=== PATIENT | male | born 1975 | race Caucasian/White ===

== ENCOUNTER → 2018-09-30 09:37 | Outpatient (CLI) | payer BC, SELFPAY ==
--- NOTE | 2018-09-30 09:45 | STEWCON_ITS ---
Version 2 Reason For Study: Abnormal EKG Stress Results Protocol: Duy Protocol Maximum Predicted HR: 179 bpm Target HR: 152 bpm % Maximum Predicted HR: 94 % Heart Stage Duration Rate BP Comment (mm:ss) (bpm) Baseline 61 126/82No Chest Pain; Diluted Definity 3 ML Given Duy Protocol Stage I 3:00 120 138/78No Chest Pain Duy Protocol Stage II 3:00 131 154/78No Chest Pain Duy Protocol Stage III 3:00 155 160/64No Chest Pain; Mild Dyspnea No Chest Pain; Mild to Moderate Dyspnea; Drew Leg Duy Protocol Stage IV 0:30 169 / Pain Recovery 88 118/68No Chest Pain Stress Duration: 9:30 mm:ss Maximum Stress HR: 169 bpm METS: 11 Baseline Echocardiogram Findings The estimated ejection fraction is 60 %. Stress Echo Wall motion Data Resting WM Intermediate WM Stress WM Resting Wall Motion Wall Motion Stress No regional wall motion No regional wall motion abnormalities noted. abnormalities noted. All segments Normal. EKG Data The baseline ECG displays normal sinus rhythm. During stress, there were no ST or T wave changes noted to suggest ischemia. The patient exercised according to the regular Duy protocol for a total duration of 9:30. The maximum heart rate attained was 181 beats per minute. This was 101% of maximum predicted heart rate. The peak blood pressure was 160/94. Symptoms with Stress The patient experinced No CP. Pt. had leg discomfort . Interpretation Summary The estimated ejection fraction is 60 %. No regional wall motion abnormalities noted. All segments Normal. No regional wall motion abnormalities noted. During stress, there were no ST or T wave changes noted to suggest ischemia. The baseline ECG displays normal sinus rhythm. The test is negative exercise induced CP or EKG or Echocardiographic changes of ischemia. Definity contrast was used for bettter visualization of wall motion. Ordering Physician: JUAN MANUEL Lau Referring Physician: Brad Singer MD Performed By: Jonn Stovall, RUST
== END ==
PROVIDERS: Family Provider Family Medicine; PCP Family Medicine; Referring Provider Nurse Practitioner Primary Care; Visit Provider Nurse Practitioner Primary Care
DX: I45.4 Nonspecific intraventricular block (principal); R42 Dizziness and giddiness; R94.31 Abnormal electrocardiogram [ECG] [EKG]
CPT/HCPCS: 93017; 93350; Q9957; A4216; C8928

== ENCOUNTER → 2022-09-11 | Outpatient (CLI) | payer BC, SELFPAY ==
[2022-09-11 13:26] LABS: Erythrocyte Sedimentation Rate 3 mm/hr (0-20)
[2022-09-11 13:28] LABS: Absolute Lymphocyte Count 1.58 X10^3/uL (0.83-4.51); Absolute Neutrophil Count 4.3 X10^3/uL (2.0-7.7); Basophil# 0.04 X10^3/uL; Basophil% 0.6 % (0-1); Eosinophil# 0.13 X10^3/uL; Hematocrit 45.1 % (40-54); Hemoglobin 14.6 g/dL (13.0-16.5); Lymphocyte # 1.58 X10^3/ul (0.83-4.51); Lymphocyte % 24.1 % (19-41); Mean Corp Hgb Conc 32.4 g/dL (32-36); Mean Corpuscular Hgb 28.7 pg (27.0-32.0); Mean Corpuscular Volume 88.8 fL (80-94); Mean Platelet Vol. 9.3 fl (6.2-12.0); Monocyte# 0.51 X10^3/uL; Monocyte% 7.8 % (0-10); NRBC Flagged by Analyzer 0 % (0-5); Neutrophil # 4.27 X10^3/uL (2.7-7.7); Neutrophil % 65.2 % (47-70); Platelet Count 233 K/mm3 (150-450); RBC Distribution Width CV 12.2 % (11.6-14.6); RBC Distribution Width SD 39.8 fl (35.1-43.9); Red Blood Count 5.08 M/mm3 (4.6-6.2); White Blood Count 6.6 K/mm3 (4.4-11.0)
[2022-09-11 14:02] LABS: CRP < 2.90 mg/L (0.0-3.0)
[2022-09-15 15:08] LABS: Endomysial Antibody IgA Negative (Negative); Immunoglobulin A 119 mg/dL (90-386); t-Transglutaminase IgA <2 U/mL (0-3)
[2022-09-16 22:06] LABS: Anti-Centromere B Ab <0.2 AI (0.0-0.9); Anti-Chromatin <0.2 AI (0.0-0.9); Anti-Jo <0.2 AI (0.0-0.9); Anti-Scleroderma-70 AB <0.2 AI (0.0-0.9); Anti-dsDNA Ab <1 IU/mL (0-9); Beef <0.10 kU/L (Class 0); Chocolate <0.10 kU/L (Class 0); Clam <0.10 kU/L (Class 0); Codfish <0.10 kU/L (Class 0); Corn <0.10 kU/L (Class 0); Egg, White <0.10 kU/L (Class 0); Egg, Whole <0.10 kU/L (Class 0); Milk (Cow) <0.10 kU/L (Class 0); Peanut <0.10 kU/L (Class 0); Pork <0.10 kU/L (Class 0); RNP Ab <0.2 AI (0.0-0.9); SCALLOP <0.10 kU/L (Class 0); SESAME SEED <0.10 kU/L (Class 0); SJOGREN'S Anti-SS-A test < 0.2 AI (0.0-0.9); SJOGREN'S Anti-SS-B test < 0.2 AI (0.0-0.9); Shrimp <0.10 kU/L (Class 0); Smith Ab <0.2 AI (0.0-0.9); Soybean <0.10 kU/L (Class 0); Walnut, (Food) <0.10 kU/L (Class 0); Wheat <0.10 kU/L (Class 0)
[2022-09-17 14:09] LABS: Cytoplasmic Ab (C-ANCA) <1:20 titer (Neg:<1:20); Immunoglobulin A 117 mg/dL (90-386); Immunoglobulin E 20 IU/mL (6-495); Immunoglobulin G 987 mg/dL (603-1613); Immunoglobulin M 117 mg/dL (20-172); Perinuclear Ab (P-ANCA) <1:20 titer (Neg:<1:20)
== END | disposition home or self-care (01) ==
PROVIDERS: PCP Family Medicine; Referring Provider Internal Medicine Gastroenterology; Visit Provider Internal Medicine Gastroenterology
DX: R13.19 Other dysphagia (principal); Z12.11 Encounter for screening for malignant neoplasm of colon
CPT/HCPCS: 36415; 82784; 82785; 83516; 85025; 85652; 86003; 86005; 86140; 86225; 86235; 86255; 86256

== ENCOUNTER → 2022-09-28 | Outpatient (CLI) | payer BC, SELFPAY | END | disposition home or self-care (01) | PROVIDERS: PCP Family Medicine; Referring Provider Internal Medicine Gastroenterology; Visit Provider Internal Medicine Gastroenterology | DX: R76.8 Other specified abnormal immunological findings in serum (principal) ==

== ENCOUNTER 2022-11-24 08:23 | Inpatient (IN) | payer BC, SELFPAY ==
[2022-11-24] VITALS (9 sets, daily range): BP systolic 102–140; BP diastolic 70–88; PULSE 72–87; RESP 16–22; TEMP 36.1–37.1; O2SAT 94–100; BMI 31.7; BMI 30.3
--- NOTE | 2022-11-24 08:27 | NURSING ---
NO OLD EKGS
--- NOTE | 2022-11-24 08:29 | CT_ITS ---
STUDY: CT BRAIN WITHOUT CONTRAST REASON FOR EXAM: Male, 47 years old. Trauma-syncope, laceration to nose RADIATION DOSAGE (If Supplied By Facility): CTDIvol = ( 44.99 ) mGy, DLP = ( 812.98 ) mGycm TECHNIQUE: Transaxial CT imaging of the brain was performed without administration of intravenous contrast material. Individualized dose optimization techniques were used for this CT. COMPARISON: No relevant priors. FINDINGS: Normal soft tissue structures. Normal calvarium. Normal size ventricles and extra-axial spaces for the patient''s age. Subtle 1 cm hypodensity in the left frontal lobe as seen on axial image #26 and coronal image #28. A similar-appearing hypodensities also seen in the right frontal lobe. Correlation with enhanced CT scan is recommended. Normal basal ganglia and thalami. Normal brainstem. Normal cerebellum. There is no intracranial hemorrhage. There are no findings of an acute ischemic infarction. Air-fluid level in the right maxillary sinus. Mucosal thickening at the base of the left maxillary sinus. Nasal septal deviation towards the right side of the midline with evidence of fullness of the right nasal fossa. Nasal fracture. CT/Brain/Head without Contrast IMPRESSION: Subtle areas of hypodensity in the left and right frontal lobes as described. Correlation with of the brain is recommended. Nasal bone fracture. Sinusitis. Electronically Signed: Clark Thomas MD at 9:36 EDT ,
--- NOTE | 2022-11-24 08:29 | CT_ITS ---
STUDY: CT CERVICAL SPINE WITHOUT CONTRAST REASON FOR EXAM: Male, 47 years old. Trauma RADIATION DOSAGE (If Supplied By Facility): CTDIvol = ( 26.38 ) mGy, DLP = ( 522.16 ) mGycm TECHNIQUE: High resolution transaxial imaging was performed without contrast material. Sagittal and coronal images were reconstructed. Individualized dose optimization techniques were used for this CT. COMPARISON: None FINDINGS: Normal craniovertebral junction. Normal anterior atlantoaxial articulation. Normal odontoid process. Normal cervical lordosis. Normal vertebral bodies and posterior osseous elements. C2-3: Normal endplates. Normal disc height and morphology. Normal central canal and intervertebral neuroforamina. C3-4: Normal endplates. Normal disc height and morphology. Normal central canal and intervertebral neuroforamina. C4-5: Normal endplates. Normal disc height and morphology. Normal central canal and intervertebral neuroforamina. C5-6: Normal endplates. Normal disc height and morphology. Normal central canal and intervertebral neuroforamina. C6-7: Normal endplates. Normal disc height and morphology. Normal central canal and intervertebral neuroforamina. C7-T1: Normal endplates. Normal disc height and morphology. Normal central canal and intervertebral neuroforamina. Normal visualized soft tissue structures. CT/Spine Cervical without Contras IMPRESSION: Normal unenhanced CT examination of the cervical spine. Electronically Signed: Clark Thomas MD at 9:38 EDT ,
--- NOTE | 2022-11-24 08:29 | CT_ITS ---
STUDY: CT FACIAL BONES WITHOUT CONTRAST REASON FOR EXAM: Male, 47 years old. Trauma-syncope, laceration to nose RADIATION DOSAGE (If Supplied By Facility): CTDIvol = ( 29.38 ) mGy, DLP = ( 613.57 ) mGycm TECHNIQUE: The patient was scanned in a multi detector CT scanner. Sagittal and coronal images were reconstructed. Individualized dose optimization techniques were used for this CT. COMPARISON: None. FINDINGS: Soft tissue swelling overlying the nasal bones. Normal orbital paige and orbital contents. , Fracture of the nasal bone. Nasal septal deviation to the right-sided midline. Normal facial bones. Air-fluid level in the right maxillary sinus and mucosal thickening at the base of the left maxillary sinus. Fullness of the right nasal fossa. CT/Sinus/Facial Bone IMPRESSION: Nondisplaced fracture of the nasal bone. Sinusitis. Electronically Signed: Clark Thomas MD at 9:37 EDT ,
--- NOTE | 2022-11-24 08:30 | EKG12_ITS ---
Test Reason : SYNCOPE Blood Pressure : / mmHG Vent. Rate : 086 BPM Atrial Rate : 086 BPM P-R Int : 116 ms QRS Dur : 092 ms QT Int : 370 ms P-R-T Axes : 003 -02 014 degrees QTc Int : 442 ms Normal sinus rhythm Minimal voltage criteria for LVH, may be normal variant ( R in aVL ) Inferior infarct , age undetermined Abnormal ECG Confirmed by ALEXANDRA MEDLEY, COREY ([id number]), makeup editor KAYLEE TAVARES ([id number]) on 11/30/2022 9:01:15 AM Referred By: Confirmed By:DARLENE MORRIS MD
--- NOTE | 2022-11-24 08:32 | EX.ED.DYSGE1 ---
HPI History of Present Illness Chief Complaint: Syncope Informant: patient and EMS Narrative Narrative: Brought in by EMS from home for syncopal episode with head injury. Patient woke up this morning feeling lightheaded states mild shortness of breath he went to kitchen to get something to eat, he tried to make it back to the bedroom, he went and sat on the commode, Oh he woke up. His head on heat radiator. Tetanus unknown. No anticoagulants. He is 3 days postop left knee arthroscopy and Meniscotomy By Dr. Haines at [facility]. He is using crutches, weight-bear as tolerated. He had diarrhea this morning. Denies any previous similar symptoms in the past. Prior similar symptoms: No PFSH PFSH Medical History Anxiety Bilateral knee pain Depression Home Medications lorazepam 0.5 mg tablet 0.5 mg PO DAILY PRN anxiety 07/07/22 [History Last Taken Unknown] pantoprazole 40 mg tablet,delayed release 40 mg PO BID 3 months #180 tabs 09/11/22 [Rx Last Taken 11/23/22] hydrocodone-acetaminophen 5-325mg 5mg-325mg 1 tab PO Q6H PRN pain 11/24/22 [History Last Taken 11/23/22] meloxicam 15 mg tablet 15 mg PO DAILY 11/24/22 [History Last Taken 11/23/22] Allergy/AdvReac Type Severity Reaction Status Date / Time No Known Allergies Allergy Unverified 07/07/22 09:07 Surgical History S/P LASIK (laser assisted in situ keratomileusis) Social History Smoking Status: Unknown if ever smoked ROS ROS ED Constitutional Constitutional ED: Denies chills, fever(s) or sweats Eyes Eyes: Denies change in vision ENT ENT ED: Denies dysphagia or sore throat Cardiovascular Cardiovascular: Reports other Details: Syncope ; Denies chest pain, leg edema, palpitations or racing heartbeat Respiratory/Chest Respiratory/Chest: Reports dyspnea; Denies cough or dyspnea on exertion Gastrointestinal Gastrointestinal: Denies abdominal pain, diarrhea, nausea or vomiting Genitourinary Genitourinary ED: Denies dysuria, hematuria or urinary frequency Musculoskeletal Musculoskeletal: Denies back pain, extremity pain or neck pain Integumentary Reports wounds; Denies rash Neurologic Neurologic: Denies headache(s), paresthesias or weakness EXAM Physical Exam Const Vital Signs: 11/24/22 08:24 11/24/22 08:29 11/24/22 08:30 Temperature 97 F L Temperature Source Temporal Pulse Rate 87 83 Respiratory Rate 20 H 17 Respiratory Effort Normal Short of Breath Respiratory Pattern Normal Blood Pressure 122/77 H 137/70 H Blood Pressure Mean 92 92 Pulse Ox 98 98 Oxygen Delivery Method Room Air Room Air 11/24/22 09:44 11/24/22 11:17 11/24/22 12:00 Temperature Temperature Source Pulse Rate 78 79 81 Respiratory Rate 16 19 H 22 H Respiratory Effort Respiratory Pattern Blood Pressure 102/88 H 135/80 H 132/81 H Blood Pressure Mean 92 98 98 Pulse Ox 96 97 Oxygen Delivery Method Room Air Room Air 11/24/22 12:45 Temperature 98 F Temperature Source Temporal Pulse Rate 85 Respiratory Rate 19 H Respiratory Effort Respiratory Pattern Blood Pressure 135/74 H Blood Pressure Mean 94 Pulse Ox 98 Oxygen Delivery Method Room Air Positive well nourished and well developed Constitutional Narrative: GCS 15. General Appearance ED: well developed and NAD HEENT Reports moist mucous membranes HEENT Narrative: Superficial abrasion above right eyelid with skin avulsion, 2 abrasions skin avulsions of the bridge of nose there is some swelling. Dried blood to bilateral nares. No facial bone tenderness. No trismus. No hemotympanums normocephalic Eyes PERRL, EOMs intact bilaterally and conjunctivae normal General Eye ED: Yes normal appearance of both eyes Neck no lymphadenopathy and supple General: Negative for tenderness Chest Wall Chest: Negative for tenderness Resp normal respiratory effort and normal air movement Effort and Inspection: symmetric chest movement; Negative for respiratory distress Cardio regular rate, regular rhythm and no murmurs Peripheral Pulses: pulses 2+ throughout GI normal to inspection, nondistended, normoactive bowel sounds and non-tender Palpation: Negative for guarding or rebound tenderness present Back/Spine no CVA tenderness and no thoracic nor lumbar tenderness Extremity Extremity Narrative: Left lower extremity: Knee with postop ecchymosis lateral superior, no deformities to bandages were noted. There is swelling the knee. There is no medial thigh or calf tenderness. Distal pulses are intact. Right lower extremity: Full range of motion, no swelling no pain. Upper extremity: Full range of motion without deformities or pain. Pulses are intact distally. General Extremety ED: Negative for edema or tenderness General Extremity: Negative for edema Neuro oriented x3, CN's II-XII intact bilaterally and no sensory deficits noted Sensorium / Orientation: awake and alert Skin Skin Narrative: See above MDM MDM MDM Narrative Medical decision making narrative: Interventions / MDM: Differential diagnosis: Diagnosis considered but do not suspect: N/A My EKG interpretation: Sinus rate of 86, no ST changes isolated T wave version leads III nonspecific. QTc 442. No S1, Q3 T3 noted. Imaging independently reviewed and interpreted by myself: CT brain/cervical spine/facial bones: No intracranial hemorrhage, nasal bone fracture, fluid right maxillary sinus. No cervical spine fracture noted. Left knee x-ray 4 views: No fracture or dislocation. Soft tissue swelling. Ultrasound left lower extremity: Superficial thrombosis of the greater saphenous vein 3 to 4 cm from the SFJ extends to the knee also short saphenous vein thrombus 1 to 2 cm from the junction extending to the mid calf. CTA chest: No PE. CT brain with IV contrast hypodensity is seen for noncontrast scan. Recommended MRI. All also read by radiology. External documents reviewed: N/A Test considered but not ordered:N/A ED course: Patient was syncopal episode head injury superficial abrasions. Tetanus updated. Trauma scans head neck and face ordered. EKG, low risk Wells criteria for PE with recent surgery does have dyspnea. D-dimer ordered. With diarrhea diarrhea, will give IV fluids. 0840: Procedure note verbal consent. Dermabond procedure for superficial abrasions. Please lay down, wounds were cleansed with normal saline. Superficial abrasion nose and upper right eye sealed with Dermabond, good hemostasis and approximation. Noted excess skin above right eye which was trimmed with iris scissors. Patient tolerated procedure well. Patient work-up trauma scans head neck and face nondisplaced nasal bone fracture. There is hypodensity frontal lobes of his brain with recommended contrast scans by radiology. Ultrasound of the leg was ordered noted superficial DVTs of the greater saphenous vein along with the short saphenous vein near the deep junctions upper 3 to 4 cm lower 1 to 2 cm. Due to a syncopal episode, CT of the chest was also ordered with a contrast CT brain to rule out PE. Results were negative. Spouse reported they spoke with his orthopedic surgeon and requested imaging of the knee. X-ray 4 views obtain soft tissue swelling with no bony changes. 1220: Discussed with vascular surgeon Dr. Bryant, not a good candidate for anticoagulants due to being guaiac positive. He states likely plans for IVC filter as an inpatient. Also did speak with his GI doctor Dr. Capps who is on-call updated on the findings, he will evaluate and assist with treatment as an inpatient. I spoke with hospitalist Dr. Ledezma updated on discussions and findings. We will admit to PCU. Re-evaluation: stable Disposition discussed with patient/family/significant other: Patient and family Case discussed with consulting clinician: Vascular surgeon, Dr. Bryant, GI, Dr. Capps, hospitalist This note was generated with Figgu dictation software. It may contain incorrect words, spelling, and punctuation that were not noted in checking the note before signing. Lab Data Attestation: I reviewed the patient's lab results. Labs: Laboratory Results - last 24 hr 11/24/22 08:00 WBC 10.4 RBC 3.66 L Hgb 10.6 L Hct 33.0 L MCV 90.2 MCH 29.0 MCHC 32.1 RDW Std Deviation 42.3 RDW Coeff of Adrian 12.9 Plt Count 222 MPV 9.5 Immature Gran % (Auto) 0.700 Neut % (Auto) 84.1 H Lymph % (Auto) 7.8 L Wise % (Auto) 5.7 Eos % (Auto) 1.3 Baso % (Auto) 0.4 Absolute Neuts (auto) 8.7 H Absolute Lymphs (auto) 0.81 L Nucleated RBC % 0 PT 12.9 INR 1.0 APTT 21.2 L D-Dimer Quant (PE/DVT) 0.34 Sodium 140 Potassium 4.2 Chloride 108 H Carbon Dioxide 26.0 Anion Gap 6 BUN 14 Creatinine 1.01 Estim Creat Clear Calc 98.37 Est GFR (MDRD) Af Amer 103 Est GFR (MDRD) Non-Af 85 BUN/Creatinine Ratio 13.9 Glucose 140 H Calcium 8.8 Radiography Diagnostic Testing: Clinical Impression(s) from Imaging Studies Brain CT 11/24/22 08:29 IMPRESSION: Subtle areas of hypodensity in the left and right frontal lobes as described. Correlation with of the brain is recommended. Nasal bone fracture. Sinusitis. Electronically Signed: Clark Thomas MD at 9:36 EDT , Cervical Spine CT 11/24/22 08:29 IMPRESSION: Normal unenhanced CT examination of the cervical spine. Electronically Signed: Clark Thomas MD at 9:38 EDT , Facial/Sinus 11/24/22 08:29 IMPRESSION: Nondisplaced fracture of the nasal bone. Sinusitis. Electronically Signed: Clark Thomas MD at 9:37 EDT , Brain CT 11/24/22 10:10 IMPRESSION: Persistent subtle areas of decreased attenuation the frontal lobes bilaterally. Correlation with MRI is recommended if clinically indicated. Known nasal fracture. Electronically Signed: Clark Thomas MD at 10:48 EDT , Chest CTA 11/24/22 10:10 IMPRESSION: Normal CTA chest examination, without a demonstrated pulmonary embolism or arterial dissection. Electronically Signed: Clark Thomas MD at 10:50 EDT , Knee X-Ray 11/24/22 10:18 IMPRESSION: Prepatellar and suprapatellar soft tissue swelling. Electronically Signed: Clark Thomas MD at 10:46 EDT , Critical Care Time Critical Care Time: Yes Critical care time (excluding procedures): 30-74 minutes, Discussing w/Patient &/or Family/Ethics Manager, Discussing w/Consultants, Arranging Admission or Transfer and Performing Direct Patient Care at Bedside Discharge Plan Dx/Rx/DC Orders Clinical Impression: Closed fracture nasal bone, GI bleed, Anemia, Superficial thrombosis of left lower extremity, Tetanus toxoid vaccination administered at current visit, Syncope, Abrasion of face, Contusion of knee, left Disposition Disposition: Acute Care Hospital [facility] Discharge Date/Time: 11/24/22 13:42
[2022-11-24] MEDS: Diphth,Pertuss(Acell),Tet Vac 0.5 ML Vial IM (08:38)
[2022-11-24 09:00] LABS: Absolute Lymphocyte Count 0.81 X10^3/uL (0.83-4.51); Absolute Neutrophil Count 8.7 X10^3/uL (2.0-7.7); Basophil# 0.04 X10^3/uL; Basophil% 0.4 % (0-1); Eosinophil# 0.13 X10^3/uL; Eosinophils% 1.3 % (0-5); Hemoglobin 10.6 g/dL (13.0-16.5); Lymphocyte # 0.81 X10^3/ul (0.83-4.51); Lymphocyte % 7.8 % (19-41); Mean Corp Hgb Conc 32.1 g/dL (32-36); Mean Corpuscular Volume 90.2 fL (80-94); Mean Platelet Vol. 9.5 fl (6.2-12.0); Monocyte# 0.59 X10^3/uL; Monocyte% 5.7 % (0-10); NRBC Flagged by Analyzer 0 % (0-5); Neutrophil # 8.72 X10^3/uL (2.7-7.7); Neutrophil % 84.1 % (47-70); Platelet Count 222 K/mm3 (150-450); RBC Distribution Width CV 12.9 % (11.6-14.6); RBC Distribution Width SD 42.3 fl (35.1-43.9); Red Blood Count 3.66 M/mm3 (4.6-6.2); White Blood Count 10.4 K/mm3 (4.4-11.0)
[2022-11-24 09:15] LABS: Anion Gap 6 (5-15); BUN 14 mg/dL (7-18); BUN/Creat Ratio 13.9 RATIO (10-20); Calcium,Total 8.8 mg/dL (8.5-10.1); Chloride 108 mmol/L (98-107); Creatinine, Serum 1.01 mg/dL (0.70-1.30); D-Dimer Quantitative (DVT/PE) 0.34 FEU/ug/m (0.27-0.49); EST Glomerular Filtration Rate 85 mL/min (>60); Est Glom Filt Rate - Afr Amer 103 mL/min (>60); Estimated Creatinine Clearance 98.37 ml/min; Glucose 140 mg/dL (74-106); Potassium 4.2 mmol/L (3.5-5.1); Sodium Level 140 mmol/L (136-145)
--- NOTE | 2022-11-24 09:32 | VDLE_ITS ---
Reason For Study: LLE Swelling RIGHT LEFT CFV is compressible, spontaneous, phasic, CFV is compressible, spontaneous, phasic, competent and demonstrates normal competent, and demonstrates normal augmentation. augmentation. Procedure FV is compressible, spontaneous, phasic, This is a venous duplex using B-mode, color competent and demonstrates normal flow and spectral Doppler. augmentation. Exam performed portable in ED. POP V is compressible, spontaneous, phasic, The exam was diagnostic. competent and demonstrates normal A preliminary report was called and/or faxed augmentation. to Dr. JARA. T/P Trunk is compressible. PTV is compressible. LT PerV is compressible. Lt GSV and SSV are Dilated and NONCOMPRESSIBLE with intraluminal echoes. GSV echogenicity appears 3-4 cm distal to SFJ and extends to the knee. SSV echoes appear 1-2 cm distal to junction and extend to the mid calf. Flow documented in color and pulsed wave doppler in Lt CFV and FV due to patient's intolerance to compressions. VL/Venous Duplex US, Unilateral Interpretation Summary Acute superficial vein thrombosis is noted in the left great saphenous vein to within 4 cm of common femoral vein. Acute superficial vein thrombosis is noted in the left small saphenous vein to within 2 cm of popliteal vein. Ordering Physician: Andre Jara Referring Physician: Micah Motley Performed By: Jose Luis Smallwood, RVT
[2022-11-24 09:40] LABS: Prothrombin Time (Protime)PT. 12.9 SECONDS (11.7-14.9)
[2022-11-24 09:41] LABS: Partial Thromboplast Time 21.2 Seconds (24.1-36.2)
--- NOTE | 2022-11-24 10:10 | CT_ITS ---
STUDY: CTA CHEST REASON FOR EXAM: Male, 47 years old. Dyspnea, syncope RADIATION DOSAGE (If Supplied By Facility): CTDIvol = ( 13.77 ) mGy, DLP = ( 497.39 ) mGycm TECHNIQUE: The examination was performed with the intravenous administration of IV 100mL Isovue-370. Post-processing of the angiographic images was performed, with multiplanar reformation and 3D reconstruction. Individualized dose optimization techniques were used for this CT. COMPARISON: None. FINDINGS: Normal enhancement of the main pulmonary artery and right and left pulmonary arteries. Normal enhancement of the bilateral peripheral pulmonary arteries. There is no demonstrated pulmonary embolism. Normal thoracic aorta and visualized great vessels. There is no demonstrated aortic dissection. Normal heart and pericardium. Normal mediastinum. Normal hilar regions. Normal visualized trachea and bronchi. The lungs are well expanded. Minimal degree of dependent bibasilar atelectasis. Normal pleura. Normal chest wall structures. Normal osseous structures. Normal visualized upper abdomen. CT/CTA Chest W/WO Contrast IMPRESSION: Normal CTA chest examination, without a demonstrated pulmonary embolism or arterial dissection. Electronically Signed: Clark Thomas MD at 10:50 EDT ,
--- NOTE | 2022-11-24 10:10 | CT_ITS ---
STUDY: CT BRAIN WITH CONTRAST REASON FOR EXAM: Male, 47 years old. Head injury -- hypodensity on noncon CT RADIATION DOSAGE (If Supplied By Facility): CTDIvol = ( 44.99 ) mGy, DLP = ( 784.80 ) mGycm TECHNIQUE: Transaxial CT imaging of the brain was performed post contrast administration. The examination was performed with intravenous administration of IV 100mL Isovue-370. Individualized dose optimization techniques were used for this CT. COMPARISON: Comparison is made with prior CT scan done earlier today. FINDINGS: Normal soft tissue structures. Normal calvarium. Normal size ventricles and extra-axial spaces for the patient''s age. Persistent subtle areas of decreased attenuation in the frontal lobes bilaterally as described previously. This may be related to prior ischemic change or traumatic sequela. Correlation with MRI is recommended if clinically indicated. Normal basal ganglia and thalami. Normal brainstem. Normal cerebellum. There is no intracranial hemorrhage. There are no findings of an acute ischemic infarction. Air-fluid level in the right maxillary sinus. CT/Brain/Head WITH Contrast IMPRESSION: Persistent subtle areas of decreased attenuation the frontal lobes bilaterally. Correlation with MRI is recommended if clinically indicated. Known nasal fracture. Electronically Signed: Clark Thomas MD at 10:48 EDT ,
--- NOTE | 2022-11-24 10:18 | RAD_ITS ---
STUDY: X-RAY - LEFT KNEE REASON FOR EXAM: Male, 47 years old. Pain along the recent fall. TECHNIQUE: 4 view(s) of the knee. COMPARISON: None. FINDINGS: Normal visualized distal femur. Normal visualized proximal tibia and fibula. Normal proximal tibiofibular articulation. Normal medial femorotibial compartment. Normal lateral femorotibial compartment. Normal patellofemoral articulation. Prepatellar and suprapatellar soft tissue swelling. RAD/Knee 4 or More Views IMPRESSION: Prepatellar and suprapatellar soft tissue swelling. Electronically Signed: Clark Thomas MD at 10:46 EDT ,
--- NOTE | 2022-11-24 12:36 | PCM.HP.STD ---
HPI - General General Date of Admission: 11/24/22 Date of Service: 11/24/22 Chief Complaint: syncope HPI Narrative TATI GUAMAN, is a 47 M with a PMH as outlined who presents via the ED on 11/24/2022 for syncope. He had a knee arthoscopy and meniscotomy 3 days prior to admission at [facility] by Dr Haines. He went home and says he woke up feeling dizzy and lightheaded today; he was able to get up and go to the kitchen to get something to eat. He then went to the bathroom and sat on the commode; the next thing he realised he passed out and was on his kees, with his head was on the heat radiator. He doesnt know how long he was out for. he denied any chest pain, palpitations, dizziness, nausea, vomiting or any other symptoms. He denied any recent long distance travel and has no history of DVT or PE. Review of systems was otherwise negative. Vitals in the ED were BP of 132/81, ID of 81, RR of 22 and oxygen sats of 97% on room air. CBC shwed hb of 10.6, wbc of 10.4 and platelets of 222. INR was 1 and D dimer was 0.34. Chemistry was unremarkable. CT of the brain showed subtle areas of hypodensity in the left and right frontal lobes, and a nasal bone fracture. Cervical spine CT as normal and facial/sinus CT showed nondisplaced fracture of the nasal bone. CTA chest was negative for any evidence of PE, and showed no evidence of arterial dissection. Xray of the knee showed prepatellar and suprapatellar soft tissue swelling. He was noted to have dropped his Hb from 14.6 3 months ago to 10.6 today. Stool for occult blood done was positive. He is being admitted to be managed for syncope and superficial DVT of the LLE as well as anemia and positive stool for occult blood. [facility] Medical History Anxiety Bilateral knee pain Depression Home Medications lorazepam 0.5 mg tablet 0.5 mg PO DAILY PRN anxiety 07/07/22 [History Last Taken Unknown] pantoprazole 40 mg tablet,delayed release 40 mg PO BID 3 months #180 tabs 09/11/22 [Rx Last Taken 11/23/22] hydrocodone-acetaminophen 5-325mg 5mg-325mg 1 tab PO Q6H PRN pain 11/24/22 [History Last Taken 11/23/22] meloxicam 15 mg tablet 15 mg PO DAILY 11/24/22 [History Last Taken 11/23/22] Allergy/AdvReac Type Severity Reaction Status Date / Time No Known Allergies Allergy Unverified 07/07/22 09:07 Surgical History S/P LASIK (laser assisted in situ keratomileusis) Social History Smoking Status: Unknown if ever smoked ROS Constitutional Constitutional: Reports fatigue, malaise and weakness; Denies anorexia, chills, fever(s) or night sweats ENT HEENT: Denies dysphagia, epistaxis, headache(s) or nasal congestion Cardiovascular Cardiovascular: Reports lightheadedness and syncope; Denies chest pain, dyspnea on exertion, edema, orthopnea, paroxysmal nocturnal dyspnea or rapid heart rate Respiratory/Chest Respiratory/Chest: Denies cough, dyspnea, productive cough, shortness of breath at rest or shortness of breath with exertion Gastrointestinal Gastrointestinal: Denies abdominal pain, constipation, diarrhea, nausea or vomiting Genitourinary Genitourinary: Denies burning urination or dysuria Neurologic Neurologic: Reports dizziness and syncope; Denies confusion, focal weakness, paresthesias or seizures Psychiatric Psychiatric: Denies anxiety or depression Endocrine Endocrinology: Denies change in body appearance Hematologic/Lymphatic Hematologic/Lymphatic: Denies anemia Vital Signs Vital Signs Vital Signs: 11/24/22 08:24 11/24/22 08:29 11/24/22 08:30 Temperature 97 F L Temperature Source Temporal Pulse Rate 87 83 Respiratory Rate 20 H 17 Respiratory Effort Normal Short of Breath Respiratory Pattern Normal Blood Pressure 122/77 H 137/70 H Blood Pressure Mean 92 92 Pulse Ox 98 98 Oxygen Delivery Method Room Air Room Air 11/24/22 09:44 11/24/22 11:17 11/24/22 12:00 Temperature Temperature Source Pulse Rate 78 79 81 Respiratory Rate 16 19 H 22 H Respiratory Effort Respiratory Pattern Blood Pressure 102/88 H 135/80 H 132/81 H Blood Pressure Mean 92 98 98 Pulse Ox 96 97 Oxygen Delivery Method Room Air Room Air Weight Weight: 227 lb 11.8 oz Body Mass Index (BMI) 31.7 Physical Exam Const alert, oriented x3 and no apparent distress General Appearance: cooperative HEENT normocephalic, head/scalp atraumatic, hearing grossly normal bilaterally and moist oral mucous membranes HEENT Narrative: has some swelling and ecchymosis over the bridge of his nose due to mechanical fall. Mouth: oral and palatal mucosa normal Eyes PERRL, EOMs intact bilaterally and conjunctivae normal Neck no lymphadenopathy and supple Resp normal respiratory effort, no retractions, no use of accessory muscles and clear to auscultation bilaterally Cardio regular rate, regular rhythm, S1 normal heart sound, S2 normal heart sound and no murmurs GI normal to inspection, nondistended, normoactive bowel sounds, soft to palpation, non-tender and non-distended Extremity Extremity Narrative: Left thigh and knee area swollen, mildly tender. Has mild erythema over knee at site of surgery Skin Skin Narrative: as under extremity Neuro oriented x3, CN's II-XII intact bilaterally and moves all extremities Sensorium / Orientation: awake and alert Motor Exam: strength 5/5 throughout Psych affect normal Results Lab / Micro Data 11/25/22 05:07 11/25/22 05:07 Labs: Laboratory Results - last 24 hr 11/24/22 08:00: WBC 10.4, RBC 3.66 L, Hgb 10.6 L, Hct 33.0 L, MCV 90.2, MCH 29.0, MCHC 32.1, RDW Std Deviation 42.3, RDW Coeff of Adrian 12.9, Plt Count 222, MPV 9.5, Immature Gran % (Auto) 0.700, Neut % (Auto) 84.1 H, Lymph % (Auto) 7.8 L, [place] % (Auto) 5.7, Eos % (Auto) 1.3, Baso % (Auto) 0.4, Absolute Neuts (auto) 8.7 H, Absolute Lymphs (auto) 0.81 L, Nucleated RBC % 0, PT 12.9, INR 1.0, APTT 21.2 L, D-Dimer Quant (PE/DVT) 0.34, Sodium 140, Potassium 4.2, Chloride 108 H, Carbon Dioxide 26.0, Anion Gap 6, BUN 14, Creatinine 1.01, Estim Creat Clear Calc 98.37, Est GFR (MDRD) Af Amer 103, Est GFR (MDRD) Non-Af 85, BUN/Creatinine Ratio 13.9, Glucose 140 H, Calcium 8.8 Micro: Microbiology 11/24/22 11:25 Stool Stool Occult Blood (RIN) - Final Occult Blood Positive Radiology Impression Brain CT 11/24/22 08:29 IMPRESSION: Subtle areas of hypodensity in the left and right frontal lobes as described. Correlation with of the brain is recommended. Nasal bone fracture. Sinusitis. Electronically Signed: Clark Thomas MD at 9:36 EDT , Cervical Spine CT 11/24/22 08:29 IMPRESSION: Normal unenhanced CT examination of the cervical spine. Electronically Signed: Clark Thomas MD at 9:38 EDT , Facial/Sinus 11/24/22 08:29 IMPRESSION: Nondisplaced fracture of the nasal bone. Sinusitis. Electronically Signed: Clark Thomas MD at 9:37 EDT , Brain CT 11/24/22 10:10 IMPRESSION: Persistent subtle areas of decreased attenuation the frontal lobes bilaterally. Correlation with MRI is recommended if clinically indicated. Known nasal fracture. Electronically Signed: Clark Thomas MD at 10:48 EDT , Chest CTA 11/24/22 10:10 IMPRESSION: Normal CTA chest examination, without a demonstrated pulmonary embolism or arterial dissection. Electronically Signed: Clark Thomas MD at 10:50 EDT , Knee X-Ray 11/24/22 10:18 IMPRESSION: Prepatellar and suprapatellar soft tissue swelling. Electronically Signed: Clark Thomas MD at 10:46 EDT , Assessment & Plan Assessment/Plan (1) Syncope: (2) GI bleed: (3) Anemia: (4) Closed fracture nasal bone: PLAN: Plan #Syncope may be due to dehydration from diarrhea patient said he had been having several episodes of diarrhea. sustained a fracture of the nasal bone admit to PCU. hydrate gently with IVF check orthostatics PT/OT consult fall precautions CTA chest was negative for any evidence of PE #Anemia Hb from august 2022 was 14.6. Down to 10.6 today stool for occult blood was positive on IV pantoprazole gastroenterology consulted keep on clear liquids baseline Hb before surgery is not clear. Will request records from [facility] was supposed to be seen by GI on outpatient basis for dysphagia. #Nasal fracture due to mechanical fall CT scan showed persistent subtle areas of decreased attenuation of the frontal lobes bilaterally. will order MRI of the brain to evaluate persistent subtle of decreased attenuation of the frontal lobes bilaterally. PT/OT on board. Fall precautions #DVT of LLE duplex of LLE showed thrombosis in greater saphenous vein and superficial saphenous vein. cannot be anticoagulated due to positive stool for occult blood #left knee meniscal tear s/p surgery ~ 4 days ago at [facility]. left knee swollen Po tylenol, PO oxycodone and IV morphine prn for pain DVT prophylaxis: SCDs Code status: full code Charges/Coding Visit Charges Inpatient E&M: 41674 Init Hosp L3
--- NOTE | 2022-11-24 12:56 | NURSING ---
PCU KORAM SYNCOPE, GI BLEED, LEFT LEG VEIN THROMBOSIS
[2022-11-24] MEDS: HYDROcodone Bitartrate/Apap 5/325 Tablet PO ×2 (14:23→20:47)
[2022-11-24] MEDS: 0.9% Normal Saline 1,000 ML 125 ML IV ×2 (14:33→22:56)
--- NOTE | 2022-11-24 16:56 | EX.PCM.CON.S ---
Assessment & Plan Assessment/Plan (1) Superficial thrombosis of left lower extremity: PLAN: -GSV thrombus within 4 cm of femoral junction, SSV thrombus within 2 cm of popliteal junction which is considered DVT equivalent and would warrant treatment -plan is currently for endoscopy tomorrow AM; pending findings could place filter afternoon or HPI Consult Data Date of Consult: 11/24/22 HPI Narrative HPI Narrative: TATI GUAMAN, is a 47 M who presents with syncope/fall. He recently had left knee scope for which they used a tourniquet and he has had persistent thigh pain. CTA of the chest was negative but venous duplex revealed GSV thrombus close in proximity to femoral junction and SSV thrombus close to popliteal junction. His Hgb in the ED was 10 down from 14 in August and he was guaiac positive. He denies dark or bloody stools, no prior GI bleed. No family or personal history of VTE. [facility] Medical History Anxiety Bilateral knee pain Depression Home Medications lorazepam 0.5 mg tablet 0.5 mg PO DAILY PRN anxiety 07/07/22 [History Last Taken Unknown] pantoprazole 40 mg tablet,delayed release 40 mg PO BID 3 months #180 tabs 09/11/22 [Rx Last Taken 11/23/22] hydrocodone-acetaminophen 5-325mg 5mg-325mg 1 tab PO Q6H PRN pain 11/24/22 [History Last Taken 11/23/22] meloxicam 15 mg tablet 15 mg PO DAILY 11/24/22 [History Last Taken 11/23/22] Allergy/AdvReac Type Severity Reaction Status Date / Time No Known Allergies Allergy Unverified 07/07/22 09:07 Surgical History S/P LASIK (laser assisted in situ keratomileusis) Social History Smoking Status: Unknown if ever smoked ROS Constitutional Constitutional: Denies chills, fever(s), frequent falls, lethargy or weakness Eyes Eyes: Denies blind spots, change in vision or loss of vision ENT HEENT: Denies bleeding gums, hoarseness or sore throat Cardiovascular Cardiovascular: Denies abdominal pain, bluish discoloration of hand/feet, chest pain with activity, claudication, cold extremities, cyanosis, dyspnea on exertion, erythema on extremities, irregular heart rhythm, leg edema, leg ulcers, numbness in extremities or weakness in extremities Respiratory/Chest Respiratory/Chest: Denies cough, excessive phlegm production, shortness of breath at rest, shortness of breath with exertion or wheezing Gastrointestinal Gastrointestinal: Denies anorexia, change in stool character, constipation, diarrhea, melena or rectal bleeding Genitourinary Genitourinary: Denies dysuria or hematuria Musculoskeletal Musculoskeletal: Denies abnormal gait Integumentary Integumentary: Reports other Details: ; Denies erythema, non-healing lesions or wounds Neurologic Neurologic: Denies abnormal speech, focal weakness, headache(s), loss of vision, numbness, paresthesias or sensory deficit Hematologic/Lymphatic Hematologic/Lymphatic: Denies easy bleeding, easy bruising or lymphadenopathy Physical Exam Const alert, oriented x3, no apparent distress and healthy appearing General Appearance: cooperative; Negative for combative or lethargic Orientation / Consciousness: awake Exam Limitations: no limitations HEENT Head and Scalp: normocephalic and atraumatic Eyes EOMs intact bilaterally General Eye: normal appearance of both eyes Neck full ROM, no lymphadenopathy, thyroid normal and No no carotid bruits General: trachea midline; Negative for lymphadenopathy or tenderness Thyroid: thyroid normal Lymph Lymphatic: Negative for no lymphadenopathy noted Resp normal respiratory effort, no use of accessory muscles and clear to auscultation bilaterally Effort and Inspection: Negative for labored, stridor or audible wheezes Cardio regular rate, regular rhythm and no murmurs Peripheral Pulses: brachial pulses present, radial pulses present, femoral pulses present, popliteal pulses present, posterior tibial pulses present and dorsalis pedis pulses present GI non-tender and non-distended; Negative for hepatosplenomegaly Back/Spine Cervical Spine: cervical ROM normal Extremity full ROM, normal capillary refill and no clubbing, cyanosis or edema Skin no rashes or lesions noted and no wounds Neuro oriented x3, CN's II-XII intact bilaterally, no focal motor deficits and no sensory deficits noted Psych thought process normal, cooperative, affect normal, speech normal and activity/motor behavior normal Lab / Micro Data 11/24/22 08:00 11/24/22 08:00 Labs: Laboratory Results - last 24 hr 11/24/22 08:00: WBC 10.4, RBC 3.66 L, Hgb 10.6 L, Hct 33.0 L, MCV 90.2, MCH 29.0, MCHC 32.1, RDW Std Deviation 42.3, RDW Coeff of Adrian 12.9, Plt Count 222, MPV 9.5, Immature Gran % (Auto) 0.700, Neut % (Auto) 84.1 H, Lymph % (Auto) 7.8 L, [place] % (Auto) 5.7, Eos % (Auto) 1.3, Baso % (Auto) 0.4, Absolute Neuts (auto) 8.7 H, Absolute Lymphs (auto) 0.81 L, Nucleated RBC % 0, PT 12.9, INR 1.0, APTT 21.2 L, D-Dimer Quant (PE/DVT) 0.34, Sodium 140, Potassium 4.2, Chloride 108 H, Carbon Dioxide 26.0, Anion Gap 6, BUN 14, Creatinine 1.01, Estim Creat Clear Calc 98.37, Est GFR (MDRD) Af Amer 103, Est GFR (MDRD) Non-Af 85, BUN/Creatinine Ratio 13.9, Glucose 140 H, Calcium 8.8 Micro: Microbiology 11/24/22 11:25 Stool Stool Occult Blood (RIN) - Final Occult Blood Positive Radiology Impression Brain CT 11/24/22 08:29 IMPRESSION: Subtle areas of hypodensity in the left and right frontal lobes as described. Correlation with of the brain is recommended. Nasal bone fracture. Sinusitis. Electronically Signed: Clark Thomas MD at 9:36 EDT , Cervical Spine CT 11/24/22 08:29 IMPRESSION: Normal unenhanced CT examination of the cervical spine. Electronically Signed: Clark Thomas MD at 9:38 EDT , Facial/Sinus 11/24/22 08:29 IMPRESSION: Nondisplaced fracture of the nasal bone. Sinusitis. Electronically Signed: Clark Thomas MD at 9:37 EDT , Brain CT 11/24/22 10:10 IMPRESSION: Persistent subtle areas of decreased attenuation the frontal lobes bilaterally. Correlation with MRI is recommended if clinically indicated. Known nasal fracture. Electronically Signed: Clark Thomas MD at 10:48 EDT , Chest CTA 11/24/22 10:10 IMPRESSION: Normal CTA chest examination, without a demonstrated pulmonary embolism or arterial dissection. Electronically Signed: Clark Thomas MD at 10:50 EDT , Knee X-Ray 11/24/22 10:18 IMPRESSION: Prepatellar and suprapatellar soft tissue swelling. Electronically Signed: Clark Thomas MD at 10:46 EDT , Charges/Coding Visit Charges Inpatient E&M: 60269 Init Hosp L2
--- NOTE | 2022-11-24 17:15 | CON.PCM.GI_ITS ---
HPI Consult Data Date of Consult: 11/24/22 HPI Narrative Reason for Consultation: Anemia HPI Narrative: TATI GUAMAN, is a 47 M who presents status post syncopal episode. He was brought in by EMS from home for syncopal episode with head injury. He woke up this morning feeling lightheaded states mild shortness of breath. He went to kitchen to get something to eat. He could not make it back to the bedroom. He made it to the bathroom and passed out in the bathroom. When he woke up he found that he hit his head on heat radiator. He does not take any anticoagulants. He is 3 days postop left knee arthroscopy and Meniscotomy By Dr. Haines at [facility]. He is using crutches, weight-bear as tolerated. He had diarrhea this morning. Denies any previous similar symptoms in the past. He had a CTA of the chest was negative but venous duplex revealed GSV thrombus close in proximity to femoral junction and SSV thrombus close to popliteal junction. His Hgb in the ED was 10 down from 14 in August and he was guaiac positive. He denies dark or bloody stools, no prior GI bleed. He is scheduled to have a screening colonoscopy and EGD for esophageal dysphagia next month. [facility] Medical History Anxiety Bilateral knee pain Depression Home Medications lorazepam 0.5 mg tablet 0.5 mg PO DAILY PRN anxiety 07/07/22 [History Last Taken Unknown] pantoprazole 40 mg tablet,delayed release 40 mg PO BID 3 months #180 tabs 09/11/22 [Rx Last Taken 11/23/22] hydrocodone-acetaminophen 5-325mg 5mg-325mg 1 tab PO Q6H PRN pain 11/24/22 [History Last Taken 11/23/22] meloxicam 15 mg tablet 15 mg PO DAILY 11/24/22 [History Last Taken 11/23/22] Allergy/AdvReac Type Severity Reaction Status Date / Time No Known Allergies Allergy Unverified 07/07/22 09:07 Surgical History S/P LASIK (laser assisted in situ keratomileusis) Social History Smoking Status: Unknown if ever smoked ROS Constitutional Constitutional: Denies chills, fever(s), frequent falls, lethargy or weakness Eyes Eyes: Denies blind spots, change in vision or loss of vision ENT HEENT: Denies bleeding gums, hoarseness or sore throat Cardiovascular Cardiovascular: Denies abdominal pain, bluish discoloration of hand/feet, chest pain with activity, claudication, cold extremities, cyanosis, dyspnea on exertion, erythema on extremities, irregular heart rhythm, leg edema, leg ulcers, numbness in extremities or weakness in extremities Respiratory/Chest Respiratory/Chest: Denies cough, excessive phlegm production, shortness of breath at rest, shortness of breath with exertion or wheezing Gastrointestinal Gastrointestinal: Denies anorexia, change in stool character, constipation, diarrhea, melena or rectal bleeding Genitourinary Genitourinary: Denies dysuria or hematuria Musculoskeletal Musculoskeletal: Denies abnormal gait Integumentary Integumentary: Reports other Details: ; Denies erythema, non-healing lesions or wounds Neurologic Neurologic: Denies abnormal speech, focal weakness, headache(s), loss of vision, numbness, paresthesias or sensory deficit Hematologic/Lymphatic Hematologic/Lymphatic: Denies easy bleeding, easy bruising or lymphadenopathy Physical Exam Const alert, oriented x3, no apparent distress and healthy appearing General Appearance: cooperative; Negative for combative or lethargic Orientation / Consciousness: awake Exam Limitations: no limitations HEENT Head and Scalp: normocephalic and atraumatic Eyes EOMs intact bilaterally General Eye: normal appearance of both eyes Neck full ROM, no lymphadenopathy, thyroid normal and No no carotid bruits General: trachea midline; Negative for lymphadenopathy or tenderness Thyroid: thyroid normal Lymph Lymphatic: Negative for no lymphadenopathy noted Resp normal respiratory effort, no use of accessory muscles and clear to auscultation bilaterally Effort and Inspection: Negative for labored, stridor or audible wheezes Cardio regular rate, regular rhythm and no murmurs Peripheral Pulses: brachial pulses present, radial pulses present, femoral pulses present, popliteal pulses present, posterior tibial pulses present and dorsalis pedis pulses present GI non-tender and non-distended; Negative for hepatosplenomegaly Back/Spine Cervical Spine: cervical ROM normal Extremity full ROM, normal capillary refill and no clubbing, cyanosis or edema Skin no rashes or lesions noted and no wounds Neuro oriented x3, CN's II-XII intact bilaterally, no focal motor deficits and no sensory deficits noted Psych thought process normal, cooperative, affect normal, speech normal and activity/motor behavior normal Lab / Micro Data 11/24/22 08:00 11/24/22 08:00 Labs: Laboratory Results - last 24 hr 11/24/22 08:00: WBC 10.4, RBC 3.66 L, Hgb 10.6 L, Hct 33.0 L, MCV 90.2, MCH 29.0, MCHC 32.1, RDW Std Deviation 42.3, RDW Coeff of Adrian 12.9, Plt Count 222, MPV 9.5, Immature Gran % (Auto) 0.700, Neut % (Auto) 84.1 H, Lymph % (Auto) 7.8 L, [place] % (Auto) 5.7, Eos % (Auto) 1.3, Baso % (Auto) 0.4, Absolute Neuts (auto) 8.7 H, Absolute Lymphs (auto) 0.81 L, Nucleated RBC % 0, PT 12.9, INR 1.0, APTT 21.2 L, D-Dimer Quant (PE/DVT) 0.34, Sodium 140, Potassium 4.2, Chloride 108 H, Carbon Dioxide 26.0, Anion Gap 6, BUN 14, Creatinine 1.01, Estim Creat Clear Calc 98.37, Est GFR (MDRD) Af Amer 103, Est GFR (MDRD) Non-Af 85, BUN/Creatinine Ratio 13.9, Glucose 140 H, Calcium 8.8 Micro: Microbiology 11/24/22 11:25 Stool Stool Occult Blood (RIN) - Final Occult Blood Positive Radiology Impression Brain CT 11/24/22 08:29 IMPRESSION: Subtle areas of hypodensity in the left and right frontal lobes as described. Correlation with of the brain is recommended. Nasal bone fracture. Sinusitis. Electronically Signed: Clark Thomas MD at 9:36 EDT , Cervical Spine CT 11/24/22 08:29 IMPRESSION: Normal unenhanced CT examination of the cervical spine. Electronically Signed: Clrak Thomas MD at 9:38 EDT , Facial/Sinus 11/24/22 08:29 IMPRESSION: Nondisplaced fracture of the nasal bone. Sinusitis. Electronically Signed: Clark Thomas MD at 9:37 EDT , Venous Doppler Study 11/24/22 09:32 Interpretation Summary Acute superficial vein thrombosis is noted in the left great saphenous vein to within 4 cm of common femoral vein. Acute superficial vein thrombosis is noted in the left small saphenous vein to within 2 cm of popliteal vein. Ordering Physician: Andre Meredith Referring Physician: Micah Motley Performed By: Jose Luis Smallwood, T Brain CT 11/24/22 10:10 IMPRESSION: Persistent subtle areas of decreased attenuation the frontal lobes bilaterally. Correlation with MRI is recommended if clinically indicated. Known nasal fracture. Electronically Signed: Clark Thomas MD at 10:48 EDT , Chest CTA 11/24/22 10:10 IMPRESSION: Normal CTA chest examination, without a demonstrated pulmonary embolism or arterial dissection. Electronically Signed: Clark Thomas MD at 10:50 EDT , Knee X-Ray 11/24/22 10:18 IMPRESSION: Prepatellar and suprapatellar soft tissue swelling. Electronically Signed: Clark Thomas MD at 10:46 EDT , Assessment & Plan Assessment/Plan (1) Superficial thrombosis of left lower extremity: PLAN: -GSV thrombus within 4 cm of femoral junction, SSV thrombus within 2 cm of popliteal junction which is considered DVT equivalent and would warrant treatment -plan is currently for endoscopy tomorrow AM; pending findings could place filter afternoon or (2) Anemia: QUALIFIERS: Anemia type: iron deficiency Iron deficiency anemia type: unspecified iron deficiency Qualified Code(s): D50.9 - Iron deficiency anemia, unspecified PLAN: This anemia is new for him. When I saw him previously he did not recall having any problems with anemia. He has not been on iron therapy. He cannot recall taken any NSAIDs except meloxicam. Since he has been having esophageal dysphagia he has been on pantoprazole therapy. (3) GI bleed: QUALIFIERS: GI bleed type/associated pathology: melena Qualified Code(s): K92.1 - Melena PLAN: Differential diagnosis for his GI bleed is include upper GI bleed rapid transit, slow upper GI bleed and less likely neoplasia. He will undergo an upper endoscopy to evaluate his upper GI tract tomorrow. He was explained alternatives, risk, benefits including outstanding bleeding, infection, sepsis, perforation, need for emergency to . Have an ASA of 2. Charges/Coding Visit Charges Inpatient E&M: 66880 Init Hosp L3
[2022-11-25] VITALS (19 sets, daily range): BP systolic 109–136; BP diastolic 68–86; PULSE 65–95; RESP 16–18; TEMP 36.6–37.1; O2SAT 92–98
[2022-11-25] MEDS: HYDROcodone Bitartrate/Apap 5/325 Tablet PO ×4 (03:31→22:16)
[2022-11-25 06:28] LABS: Absolute Lymphocyte Count 1.27 X10^3/uL (0.83-4.51); Absolute Neutrophil Count 5.1 X10^3/uL (2.0-7.7); Basophil# 0.02 X10^3/uL; Basophil% 0.3 % (0-1); Eosinophil# 0.16 X10^3/uL; Eosinophils% 2.3 % (0-5); Hematocrit 27.3 % (40-54); Hemoglobin 9.1 g/dL (13.0-16.5); Lymphocyte # 1.27 X10^3/ul (0.83-4.51); Lymphocyte % 17.9 % (19-41); Mean Corp Hgb Conc 33.3 g/dL (32-36); Mean Corpuscular Hgb 29.8 pg (27.0-32.0); Mean Corpuscular Volume 89.5 fL (80-94); Mean Platelet Vol. 9.3 fl (6.2-12.0); Monocyte# 0.51 X10^3/uL; Monocyte% 7.2 % (0-10); NRBC Flagged by Analyzer 0 % (0-5); Neutrophil # 5.11 X10^3/uL (2.7-7.7); Neutrophil % 71.7 % (47-70); Platelet Count 209 K/mm3 (150-450); RBC Distribution Width CV 13.4 % (11.6-14.6); RBC Distribution Width SD 43.7 fl (35.1-43.9); Red Blood Count 3.05 M/mm3 (4.6-6.2); White Blood Count 7.1 K/mm3 (4.4-11.0)
[2022-11-25 06:54] LABS: Anion Gap 1 (5-15); BUN 11 mg/dL (7-18); BUN/Creat Ratio 11.8 RATIO (10-20); Calcium,Total 8.2 mg/dL (8.5-10.1); Chloride 109 mmol/L (98-107); Creatinine, Serum 0.93 mg/dL (0.70-1.30); EST Glomerular Filtration Rate 93 mL/min (>60); Est Glom Filt Rate - Afr Amer 113 mL/min (>60); Estimated Creatinine Clearance 106.83 ml/min; Glucose 112 mg/dL (74-106); Potassium 4.7 mmol/L (3.5-5.1); Sodium Level 139 mmol/L (136-145)
--- NOTE | 2022-11-25 09:03 | PN_ITS ---
Subjective Subjective Patient seen and examined. He still has some pain over the bridge of his nose, but has no other complaints otherwise. He denied any fever, chills, chest pain, palpitations, dizziness, nausea, vomiting or diarrhea. Review of systems is otherwise negative. He has remained hemodynamically stable. Objective Data Objective Data Vital Signs: Vital Signs Temp Pulse Resp BP Pulse Ox O2 Del Method 98.1 F 74 16 129/70 H 97 Room Air 11/25/22 08:00 11/25/22 08:00 11/25/22 08:00 11/25/22 08:00 11/25/22 08:00 11/25/22 08:00 Oxygen Delivery Method Room Air Weight: 217 lb 9.54 oz Body Mass Index (BMI) 30.3 Intake & Output: Intake and Output for Last 24 Hours 11/23/22 11/24/22 11/25/22 23:59 23:59 23:59 Intake Total 1645 / 1765 1160 / 1160 Balance 1645 / 1765 1160 / 1160 Lab / Micro Data 11/25/22 05:07 11/25/22 05:07 Labs: Laboratory Results - last 24 hr 11/24/22 08:00: PT 12.9, INR 1.0, APTT 21.2 L, D-Dimer Quant (PE/DVT) 0.34, Sodium 140, Potassium 4.2, Chloride 108 H, Carbon Dioxide 26.0, Anion Gap 6, BUN 14, Creatinine 1.01, Estim Creat Clear Calc 98.37, Est GFR (MDRD) Af Amer 103, Est GFR (MDRD) Non-Af 85, BUN/Creatinine Ratio 13.9, Glucose 140 H, Calcium 8.8 11/25/22 05:07: WBC 7.1, RBC 3.05 L, Hgb 9.1 L, Hct 27.3 L, MCV 89.5, MCH 29.8, MCHC 33.3, RDW Std Deviation 43.7, RDW Coeff of Adrian 13.4, Plt Count 209, MPV 9.3, Immature Gran % (Auto) 0.600, Neut % (Auto) 71.7 H, Lymph % (Auto) 17.9 L, [place] % (Auto) 7.2, Eos % (Auto) 2.3, Baso % (Auto) 0.3, Absolute Neuts (auto) 5.1, Absolute Lymphs (auto) 1.27, Nucleated RBC % 0, Sodium 139, Potassium 4.7, Chloride 109 H, Carbon Dioxide 29.0, Anion Gap 1 L, BUN 11, Creatinine 0.93, Estim Creat Clear Calc 106.83, Est GFR (MDRD) Af Amer 113, Est GFR (MDRD) Non-Af 93, BUN/Creatinine Ratio 11.8, Glucose 112 H, Calcium 8.2 L Micro: Microbiology 11/24/22 11:25 Stool Stool Occult Blood (RIN) - Final Occult Blood Positive Radiography Diagnostic Testing: Radiology Impression Brain CT 11/24/22 08:29 IMPRESSION: Subtle areas of hypodensity in the left and right frontal lobes as described. Correlation with of the brain is recommended. Nasal bone fracture. Sinusitis. Electronically Signed: Clark Thomas MD at 9:36 EDT , Cervical Spine CT 11/24/22 08:29 IMPRESSION: Normal unenhanced CT examination of the cervical spine. Electronically Signed: Clark Thomas MD at 9:38 EDT , Facial/Sinus 11/24/22 08:29 IMPRESSION: Nondisplaced fracture of the nasal bone. Sinusitis. Electronically Signed: Clark Thomas MD at 9:37 EDT , Venous Doppler Study 11/24/22 09:32 Interpretation Summary Acute superficial vein thrombosis is noted in the left great saphenous vein to within 4 cm of common femoral vein. Acute superficial vein thrombosis is noted in the left small saphenous vein to within 2 cm of popliteal vein. Ordering Physician: Andre Meredith Referring Physician: Micah Motley Performed By: Jose Luis Smallwood, T Brain CT 11/24/22 10:10 IMPRESSION: Persistent subtle areas of decreased attenuation the frontal lobes bilaterally. Correlation with MRI is recommended if clinically indicated. Known nasal fracture. Electronically Signed: Clark Thomas MD at 10:48 EDT , Chest CTA 11/24/22 10:10 IMPRESSION: Normal CTA chest examination, without a demonstrated pulmonary embolism or arterial dissection. Electronically Signed: Clark Thomas MD at 10:50 EDT , Knee X-Ray 11/24/22 10:18 IMPRESSION: Prepatellar and suprapatellar soft tissue swelling. Electronically Signed: Clark Thomas MD at 10:46 EDT , Physical Exam Const alert, oriented x3 and no apparent distress General Appearance: cooperative and well developed HEENT normocephalic, head/scalp atraumatic, hearing grossly normal bilaterally and moist oral mucous membranes Eyes PERRL, EOMs intact bilaterally and conjunctivae normal Neck no lymphadenopathy and supple Lymph Lymphatic: no lymphadenopathy noted and no lymphedema noted Resp normal respiratory effort, normal air movement, no retractions, no use of accessory muscles and clear to auscultation bilaterally Cardio regular rate, regular rhythm, S1 normal heart sound, S2 normal heart sound and no murmurs GI normal to inspection, nondistended, normoactive bowel sounds, soft to palpation, non-tender and non-distended Extremity Extremity Narrative: Left thigh and knee area swollen, mildly tender. Has mild erythema over knee at site of surgery. Swelling is improving. Skin Skin Narrative: as under extremity Neuro oriented x3, CN's II-XII intact bilaterally, moves all extremities and no focal motor deficits Sensorium / Orientation: awake and alert Motor Exam: strength 5/5 throughout Psych thought process normal, cooperative and affect normal Appearance: appropriate Assessment & Plan Assessment/Plan (1) Syncope: (2) GI bleed: QUALIFIERS: GI bleed type/associated pathology: melena Qualified Code(s): K92.1 - Melena (3) Anemia: QUALIFIERS: Anemia type: iron deficiency Iron deficiency anemia type: unspecified iron deficiency Qualified Code(s): D50.9 - Iron deficiency anemia, unspecified (4) Closed fracture nasal bone: PLAN: Plan #Syncope * may be due to dehydration from diarrhea * patient said he had been having several episodes of diarrhea. * sustained a fracture of the nasal bone * admit to PCU. * hydrate gently with IVF * PT/OT consult * fall precautions * CTA chest was negative for any evidence of PE * #Anemia * Hb from august 2022 was 14.6. Down to 10.6 today * stool for occult blood was positive * on IV pantoprazole * gastroenterology on board; for EGD today * hb today is 9.1, down from 10.6 on admission. * currently NPO * was supposed to be seen by GI on outpatient basis for dysphagia. * * #Nasal fracture * due to mechanical fall * CT scan showed persistent subtle areas of decreased attenuation of the frontal lobes bilaterally. * MRI of the brain ordered to evaluate persistent subtle of decreased attenuation of the frontal lobes bilaterally. * PT/OT on board. * Fall precautions * #DVT of LLE * duplex of LLE showed thrombosis in greater saphenous vein and superficial saphenous vein. * cannot be anticoagulated due to positive stool for occult blood * #left knee meniscal tear * s/p surgery ~ 4 days prior to admission at [facility]. * left knee swollen * Po tylenol, PO oxycodone and IV morphine prn for pain * * DVT prophylaxis: SCDs Code status: full code * * Charges/Coding Visit Charges Inpatient E&M: 43703 Subs Hosp L2
[2022-11-25] MEDS: Lactated Ringers 1,000 ML 15 ML IV (10:48)
--- NOTE | 2022-11-25 12:10 | OP.EGD_ITS ---
Patient Name: Jose Ortiz Procedure Date: 11/25/2022 11:32 AM Date of : 1975 Age: 47 Procedure: Upper GI endoscopy Indications: Iron deficiency anemia Providers: Dick Capps DO Medicines: Monitored Anesthesia Care Patient Profile: This is a 47 year old male. Refer to note in patient chart for documentation of history and physical. Patient has symptoms of acute nausea. Complications: No immediate complications. Procedure: Pre-Anesthesia Assessment: - Prior to the procedure, a History and Physical was performed, and patient medications and allergies were reviewed. The patient is competent. The risks and benefits of the procedure and the sedation options and risks were discussed with the patient. All questions were answered and informed consent was obtained. Patient identification and proposed procedure were verified by the physician. Mental Status Examination: normal. Respiratory Examination: clear to auscultation. CV Examination: normal. Prophylactic Antibiotics: The patient does not require prophylactic antibiotics. Prior Anticoagulants: The patient has taken no previous anticoagulant or antiplatelet agents. After reviewing the risks and benefits, the patient was deemed in satisfactory condition to undergo the procedure. The anesthesia plan was to use monitored anesthesia care (MAC). Immediately prior to administration of medications, the patient was re-assessed for adequacy to receive sedatives. The heart rate, respiratory rate, oxygen saturations, blood pressure, adequacy of pulmonary ventilation, and response to care were monitored throughout the procedure. The physical status of the patient was re-assessed after the procedure. After obtaining informed consent, the endoscope was passed under direct vision. Throughout the procedure, the patient's blood pressure, pulse, and oxygen saturations were monitored continuously. The Endoscope was introduced through the mouth, and advanced to the second part of duodenum. The upper GI endoscopy was accomplished without difficulty. The patient tolerated the procedure well. Scope In: 11:56:02 AM Scope Out: 11:58:51 AM Total Procedure Duration Time 0 hours 2 minutes 49 seconds Findings: Bood in the back of the mouth and throat. The examined esophagus was normal. A small hiatal hernia was present. The exam of the stomach was otherwise normal, except for some retained food. The third portion of the duodenum was normal. Impression: - Normal esophagus with blood in the back of the throat. - Small hiatal hernia with some retained food. - Normal third portion of the duodenum. - No specimens collected. Recommendation: - Return patient to [facility] for [facility] care. - Resume regular diet. - Consider Colonoscopy - Continue present medications. Procedure Code(s): --- Professional --- 15384, Esophagogastroduodenoscopy, flexible, transoral; diagnostic, including collection of specimen(s) by brushing or washing, when performed (separate procedure) CPT copyright 2017 [employer]. All rights reserved. The codes documented in this report are preliminary and upon motion pictures cartoonist review may be revised to meet current compliance requirements. Dick Capps DO 11/25/2022 12:10:07 PM This report has been signed electronically. Number of Addenda: 0 Note Initiated On: 11/25/2022 11:32 AM
--- NOTE | 2022-11-25 12:11 | OP.CCLET_ITS ---
11/25/2022 Micah Motley [address] [place] [address] Re : Upper GI endoscopy procedure for Jose Ortiz Dear Dr. Motley This procedure was performed on Friday, November 25, 2022. My impressions and recommendations are as follows: Impressions : - Normal esophagus with blood in the back of the throat. - Small hiatal hernia with some retained food. - Normal third portion of the duodenum. - No specimens collected. Recommendations : - Return patient to [facility] for ongoing care. - Resume regular diet. - Consider Colonoscopy - Continue present medications. My findings are described in the full procedure note, which is enclosed. If I can be of further assistance, please feel free to contact me at . Sincerely, Dick Capps, 11/25/2022 12:10:07 PM This report has been signed electronically.
--- NOTE | 2022-11-25 13:32 | CASEMGMT ---
RN CM attempted to complete assessment x2. Patient is out of room at procedure. CM will attempt to complete assessment at later time.
--- NOTE | 2022-11-25 14:35 | OP.PCM_ITS ---
Report of Operation Date of Procedure: 11/25/22 Pre-Operative Diagnosis: DVT, acute anemia Post-Operative Diagnosis: same Surgery/Procedure Performed:: insertion IVC filter Surgeon: Estuardo Bryant Estimated Blood Loss (mL): 4 Description of Procedure: HPI: Patient is a 47-year-old male admitted status post arthroscopic knee surgery with syncope and anemia. He also has occult positive stool and was found to have proximal great saphenous and small saphenous thrombosis equivalent to DVT. He has contraindication anticoagulation so an IVC filter is felt to be appropriate. He is taken now for urgent insertion of inferior vena cava. Description of procedure: Upon obtaining form consent and verification correct patient procedure site patient was taken to the [employer] where he was positioned prepped and draped usual fashion. Timeout was performed and conscious sedation administered with Versed and fentanyl. Skin overlying the right common femoral vein was anesthetized 1% lidocaine the vessel accessed under ultrasound guidance in retrograde fashion on my this was then exchanged for micropuncture sheath through which hand-injection ilio caval venogram was performed which revealed satisfactory placement no extravasation or dissection. Also revealed patent right iliac venous system as well as normal caliber vena cava at the inferior aspect. The starter wire was advanced through the micropuncture sheath and micropuncture sheath exchanged out for the [employer] delivery system which is advanced in position and distal traction venacavogram performed which confirmed location of the renal vein confluence as well as patent normal caliber vena cava. A [employer] filter was then advanced in the position and deployed inferior to the lowest renal vein. Completion venacavogram confirmed satisfactory position with no significant tilt, in satisfactory position, and no extravasation or dissection. The delivery system was then withdrawn and pressure held for 5 minutes after which patient was returned to the PCU.
--- NOTE | 2022-11-25 15:30 | CASEMGMT ---
KADEN LAROSE Discharge Planning Assessment: Face to Face with patient for initial transition planning/care coordination assessment.?Pt lying flat s/p procedure, is alert and oriented. KADEN LAROSE introduced self and role at [facility], pt voices understanding and is agreeable to participating in assessment with at bedside.? Care providers, pharmacy,?and demographics verified. ? Admitting dx: syncope, DVT PCP: [facility] Specialists: [facility] (GI), [facility] Orthopedic Surgeon Preferred Pharmacy: [facility] Insurance: [employer] Prescription Benefit: yes? LNOK: Sheryl Living Arrangements: Pt lives with his in a [place] with steps to enter. Pt states he is independent at baseline for all ADLs including self care and household tasks. Since his OR on his left knee, pt states he has been staying on the main level and not going downstairs and has been using crutches to ambulate. Transportation: Pt drives and his is able to drive if pt unable. DME: Crutches, has [facility] and walker available if needed HHC/SNF: denies any previous providers ? Plan: Pt states he plans to return home at discharge with the support of his and family. States he has an appointment with his orthopedic surgeon at [facility] on Wednesday and was to determine plan for therapy at that appointment but is unsure plan based on this admission and subsequent evaluation and treatment. CT of leg scheduled for tomorrow. Will determine next steps after this has resulted. Will continue to monitor and assist with DC planning needs as identified. Leo Shah RN CM
[2022-11-26] VITALS: BP 129/70; BP 131/69; PULSE 84; RESP 18; TEMP 36.6; O2SAT 95
[2022-11-26] MEDS: HYDROcodone Bitartrate/Apap 5/325 Tablet PO (05:11)
[2022-11-26 06:05] LABS: Absolute Lymphocyte Count 0.87 X10^3/uL (0.83-4.51); Absolute Neutrophil Count 9.5 X10^3/uL (2.0-7.7); Basophil# 0.01 X10^3/uL; Basophil% 0.1 % (0-1); Hematocrit 30.7 % (40-54); Lymphocyte # 0.87 X10^3/ul (0.83-4.51); Lymphocyte % 7.8 % (19-41); Mean Corp Hgb Conc 32.6 g/dL (32-36); Mean Corpuscular Hgb 29.7 pg (27.0-32.0); Mean Corpuscular Volume 91.1 fL (80-94); Mean Platelet Vol. 9.2 fl (6.2-12.0); Monocyte# 0.76 X10^3/uL; Monocyte% 6.8 % (0-10); NRBC Flagged by Analyzer 0 % (0-5); Neutrophil # 9.49 X10^3/uL (2.7-7.7); Neutrophil % 84.7 % (47-70); Platelet Count 250 K/mm3 (150-450); RBC Distribution Width CV 13.2 % (11.6-14.6); RBC Distribution Width SD 42.7 fl (35.1-43.9); Red Blood Count 3.37 M/mm3 (4.6-6.2); White Blood Count 11.2 K/mm3 (4.4-11.0)
[2022-11-26 06:58] LABS: Anion Gap 7 (5-15); BUN 23 mg/dL (7-18); BUN/Creat Ratio 24.3 RATIO (10-20); Calcium,Total 8.9 mg/dL (8.5-10.1); Chloride 106 mmol/L (98-107); Creatinine, Serum 0.95 mg/dL (0.70-1.30); EST Glomerular Filtration Rate 91 mL/min (>60); Est Glom Filt Rate - Afr Amer 110 mL/min (>60); Estimated Creatinine Clearance 104.58 ml/min; Glucose 134 mg/dL (74-106); Potassium 3.8 mmol/L (3.5-5.1); Sodium Level 140 mmol/L (136-145)
[2022-11-26 07:00] VITALS: O2SAT 95
--- NOTE | 2022-11-26 07:00 | CT_ITS ---
STUDY: CTA OF THE ABDOMINAL AORTA AND BILATERAL LOWER EXTREMITIES REASON FOR EXAM: Male, 47 years old. 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 Recent IVC filter placement. RADIATION DOSAGE (If Supplied By Facility): CTDIvol = ( 8.11 ) mGy, DLP = ( 1520.27 ) mGycm TECHNIQUE: Axial CT angiography multi-detector data acquisition was obtained from the to the following intravenous administration of IV 100mL Isovue-370. Axial images and MIP images were reconstructed from the axial data set. Post-processing of the angiographic images was performed, with multiplanar reformation and 3D reconstruction. Individualized dose optimization techniques were used for this CT. TECHNICAL QUALITY: Good COMPARISON: None. Descriptors of Narrowing: None (0%) Mild (< 50%) Moderate (50-70%) Severe (70-90%) Subtotal/Total Occlusion (90-100%) Non-Evaluable (technically non-diagnostic FINDINGS: Fatty infiltration of the liver. A filter is seen within the inferior vena cava. Small umbilical hernia containing fat. There is evidence of a left knee joint effusion in keeping with patient''s history of recent arthroscopy. Abdominal aorta: No demonstrated narrowing. Celiac and superior mesenteric arteries: No demonstrated narrowing. Inferior mesenteric artery: No demonstrated narrowing. Right renal artery(arteries): No demonstrated narrowing. Left renal artery(arteries): No demonstrated narrowing. Left common iliac artery: No demonstrated narrowing. Left external iliac artery: No demonstrated narrowing. Left internal iliac artery: No demonstrated narrowing. LEFT LOWER EXTREMITY Left common femoral artery: No demonstrated narrowing. Left profundus femoris: No demonstrated narrowing. Left superficial femoral: No demonstrated narrowing. Left popliteal artery: No demonstrated narrowing. Left tibioperoneal trunk: No demonstrated narrowing. Left anterior tibial artery: No demonstrated narrowing. Left posterior tibial artery: No demonstrated narrowing. Left peroneal artery: No demonstrated narrowing. CT/CTA LWR EXTR W/O & W/DYE IMPRESSION: No evidence of a popliteal artery aneurysm. No evidence of arterial damage to the left lower extremity. Postoperative changes are seen in the knee joint in keeping with history of recent arthroscopy. Electronically Signed: Clark Thomas MD at 9:07 EDT ,
--- NOTE | 2022-11-26 07:35 | MRI_ITS ---
STUDY: MRI BRAIN WITH AND WITHOUT CONTRAST REASON FOR EXAM: Male, 47 years old. Syncopal episode TECHNIQUE: Multiplanar multisequence imaging of the brain was performed without and following the administration of intravenous contrast. IV contrast: 20 cc Clariscan. COMPARISON: Noncontrast head CT 11/24/2022 FINDINGS: The ventricles, cisterns, and sulci are within normal limits for patients age. There is no restricted diffusion to suggest acute ischemia or infarction. No succeptibility artifict to suggest intracranial hemorrhage or mineralization. Major intracranial signal voids are preserved. Scattered high T2 signal foci in the periventricular white matter, nonspecific pattern. There is no midline shift, mass effect, or extra axial fluid collections are seen. No CP angle or IAC mass is seen. The orbits are unremarkable. The sella turcica and craniovertebral junction are within normal limits. Bilateral maxillary sinusitis. Minimal left otomastoiditis. No abnormal enhancement is seen. MRI/Brain W/WO Contrast IMPRESSION: No intracranial hemorrhage, acute infarct, or space occupying lesion seen. Nonspecific white matter changes which likely represent changes of microvascular ischemia. Demyelinating disease considered less likely. Electronically Signed: Matt Diallo MD at 15:51 EDT ,
[2022-11-26 08:31] VITALS: BP 129/83; PULSE 82; RESP 16; TEMP 36.7; O2SAT 98
[2022-11-26] MEDS: Loperamide 2 MG Capsule PO (14:09)
--- NOTE | 2022-11-26 15:02 | DS.PCM_ITS ---
Providers Date of Admission: 11/24/22 Date of Discharge: 11/26/22 Primary Care Physician: Dr. Micah Motley MD Consultations 11/24/22 13:51 Consult: Gastroenterology Routine Consulting Provider: [facility] Reason for Consult: positive stool occult blood EMERGENT Consult: No Notified: Yes Date Notified: 11/24/22 Time Notified: 13:14 Method of Notification: Text Consult: Vascular Surgery Routine Consulting Provider: Estuardo Bryant Reason for Consult: venous thrombosis of LLE, positive FOBT so no blood thinners EMERGENT Consult: No Notified: Yes Date Notified: 11/24/22 Time Notified: 13:14 Method of Notification: Text Reason For Visit: SYNCOPE, DVT Diagnosis Discharge Diagnosis (1) Syncope: Status: Acute Code(s): R55 - Syncope and collapse (2) GI bleed: Status: Acute Code(s): K92.2 - Gastrointestinal hemorrhage, unspecified Qualifiers: GI bleed type/associated pathology: melena Qualified Code(s): K92.1 - Melena (3) Anemia: Status: Acute Code(s): D64.9 - Anemia, unspecified Qualifiers: Anemia type: iron deficiency Iron deficiency anemia type: unspecified iron deficiency Qualified Code(s): D50.9 - Iron deficiency anemia, unspecified (4) Closed fracture nasal bone: Status: Acute Code(s): S02.2XXA - Fracture of nasal bones, initial encounter for closed fracture Plan #Syncope * may be due to dehydration from diarrhea * patient said he had been having several episodes of diarrhea. * sustained a fracture of the nasal bone * admit to PCU. * hydrate gently with IVF * check orthostatics * PT/OT consult * fall precautions * CTA chest was negative for any evidence of PE * #Anemia * Hb from august 2022 was 14.6. Down to 10.6 today * stool for occult blood was positive * on IV pantoprazole * gastroenterology consulted * keep on clear liquids * baseline Hb before surgery is not clear. Will request records from [facility] * was supposed to be seen by GI on outpatient basis for dysphagia. * * #Nasal fracture * due to mechanical fall * CT scan showed persistent subtle areas of decreased attenuation of the frontal lobes bilaterally. * will order MRI of the brain to evaluate persistent subtle of decreased attenuation of the frontal lobes bilaterally. * PT/OT on board. * Fall precautions * #DVT of LLE * duplex of LLE showed thrombosis in greater saphenous vein and superficial saphenous vein. * cannot be anticoagulated due to positive stool for occult blood * #left knee meniscal tear * s/p surgery ~ 4 days ago at [facility]. * left knee swollen * Po tylenol, PO oxycodone and IV morphine prn for pain * * DVT prophylaxis: SCDs Code status: full code * * Medications at Discharge Home Medications lorazepam 0.5 mg tablet 0.5 mg PO DAILY PRN anxiety 07/07/22 pantoprazole 40 mg tablet,delayed release 40 mg PO BID 3 months #180 tabs 09/11/22 hydrocodone-acetaminophen 5-325mg 5mg-325mg 1 tab PO Q6H PRN pain 11/24/22 apixaban 5 mg tablet (Eliquis) 10 mg (2 x 5 mg) PO DAILY #30 tabs 11/26/22 Hospital Course Operations None Procedures IVC filter placement and - Summary of Care Provided Minutes Spent on Discharge: 52 Hospital Course: TATI GUAMAN, is a 47 M with a PMH as outlined who presents via the ED on 11/24/2022 for syncope. He had a knee arthoscopy and meniscotomy 3 days prior to admission at [facility] by Dr Haines. He went home and says he woke up feeling dizzy and lightheaded today; he was able to get up and go to the kitchen to get something to eat. He then went to the bathroom and sat on the commode; the next thing he realised he passed out and was on his kees, with his head was on the heat radiator. He doesnt know how long he was out for. he denied any chest pain, palpitations, dizziness, nausea, vomiting or any other symptoms. He denied any recent long distance travel and has no history of DVT or PE. Review of systems was otherwise negative. Vitals in the ED were BP of 132/81, WV of 81, RR of 22 and oxygen sats of 97% on room air. CBC shwed hb of 10.6, wbc of 10.4 and platelets of 222. INR was 1 and D dimer was 0.34. Chemistry was unremarkable. CT of the brain showed subtle areas of hypodensity in the left and right frontal lobes, and a nasal bone fracture. Cervical spine CT as normal and facial/sinus CT showed nondisplaced fracture of the nasal bone. CTA chest was negative for any evidence of PE, and showed no evidence of arterial dissection. Xray of the knee showed prepatellar and suprapatellar soft tissue swelling. He was noted to have dropped his Hb from 14.6 3 months ago to 10.6 today. Stool for occult blood done was positive. He was admitted to be managed for syncope and superficial DVT of the LLE as well as anemia and positive stool for occult blood. Vascular surgery and gastroenterology were consulted. HE had EGD which showed some blood at the back of his throat with a normal esophagus and small hiatal hernia, as well as normal third portion of duodenum. He had an IVC filter subsequently placed by vascular surgery. In light of the superficial thrombus in the left lower extremity, per vascular surgery and gastroenterology, patient was to be put on Xarelto 10 mg daily to help prevent propagation of the superficial blood clots to become DVTs. Patient was therefore placed on Xarelto 10 mg daily. He had MRI of the brain which showed no intracranial hemorrhage, acute infarct or space occupying lesion,a nd nonspecific white matter changes likely representing changes of microvascular ischemia and demyelinating disease considered less likely. He remained stable and was discharged home on 11/26/2022. He is follow-up with his primary care doctor, vascular surgery and gastroenterology within 1 to 2 weeks. Of note. Vascular surgery he is to be on the Xarelto for 6 to 8 weeks. Patient seen and examined prior to discharge. He had no active complaints and had an uneventful night. Review of systems otherwise negative. Labs and vitals reviewed. Medication reviewed and reconciled. Physical Exam Const alert, oriented x3 and no apparent distress General Appearance: cooperative, comfortable, well kempt and well developed HEENT normocephalic, head/scalp atraumatic, hearing grossly normal bilaterally and moist oral mucous membranes Mouth: oral and palatal mucosa normal Eyes PERRL, EOMs intact bilaterally and conjunctivae normal Neck no lymphadenopathy and supple Lymph Lymphatic: no lymphadenopathy noted and no lymphedema noted Resp normal respiratory effort, normal air movement, no retractions, no use of accessory muscles and clear to auscultation bilaterally Cardio regular rate, regular rhythm, S1 normal heart sound, S2 normal heart sound and no murmurs GI normal to inspection, nondistended, normoactive bowel sounds, soft to palpation, non-tender and non-distended Extremity Extremity Narrative: Left thigh and knee area swollen, swelling has improved significantly. Has mild erythema over knee at site of surgery. Swelling is improving. Skin Skin Narrative: as under extremity Neuro oriented x3, CN's II-XII intact bilaterally, moves all extremities and no focal motor deficits Sensorium / Orientation: awake and alert Motor Exam: strength 5/5 throughout Psych thought process normal, cooperative and affect normal Appearance: appropriate Weight / BMI Weight Weight: 217 lb 9.54 oz Body Mass Index (BMI) 30.3 ABG / Lab / Microbiology Data 11/26/22 05:18 11/26/22 05:18 Laboratory: Laboratory Results - last 24 hr 11/26/22 05:18: WBC 11.2 H, RBC 3.37 L, Hgb 10.0 L, Hct 30.7 L, MCV 91.1, MCH 29.7, MCHC 32.6, RDW Std Deviation 42.7, RDW Coeff of Adrian 13.2, Plt Count 250, MPV 9.2, Immature Gran % (Auto) 0.600, Neut % (Auto) 84.7 H, Lymph % (Auto) 7.8 L, Anson % (Auto) 6.8, Eos % (Auto) 0.0, Baso % (Auto) 0.1, Absolute Neuts (auto) 9.5 H, Absolute Lymphs (auto) 0.87, Nucleated RBC % 0, Sodium 140, Potassium 3.8, Chloride 106, Carbon Dioxide 27.0, Anion Gap 7, BUN 23 H, Creatinine 0.95, Estim Creat Clear Calc 104.58, Est GFR (MDRD) Af Amer 110, Est GFR (MDRD) Non-Af 91, BUN/Creatinine Ratio 24.3 H, Glucose 134 H, Calcium 8.9 Microbiology: Microbiology 11/24/22 11:25 Stool Stool Occult Blood (RIN) - Final Occult Blood Positive Radiography Diagnostic Testing: Radiology Impression Lower Extremity CTA 11/26/22 07:00 IMPRESSION: No evidence of a popliteal artery aneurysm. No evidence of arterial damage to the left lower extremity. Postoperative changes are seen in the knee joint in keeping with history of recent arthroscopy. Electronically Signed: Clark Thomas MD at 9:07 EDT , D/C Instructions Discharge Diet: Low fat / Low cholesterol Discharge Activity: Return to Normal Activity Weight Bearing Status: Weight bearing as tolerated Call your doctor if you observe: Fever of 101 or Higher, Shortness of breath, Dizziness, Swelling in the ankles and Chest pain Meaningful Use Info Meaningful Use Diagnoses (Choose all that apply): None applicable Discharge Plan Admission Admit Date/Time: 11/24/22 12:48 Primary Reason for Your Visit: superficial thrombosis of hte LLE Attending Provider: Oralia Ledezma Primary Care Provider: Micah Motley Consulting Providers: Estuardo Bryant; Dick Capps Instructions Patient Instructions: IVC Filter Placement Discharge Orders/Prescriptions Prescriptions: New Eliquis 5 mg Tablet 10 mg PO DAILY Qty: 30 2RF Continued lorazepam 0.5 mg tablet 0.5 mg PO DAILY PRN (Reason: anxiety) pantoprazole 40 mg tablet,delayed release (DR/EC) 40 mg PO BID 90 Days Qty: 180 3RF hydrocodone-acetaminophen 5-325 mg tablet 1 tab PO Q6H PRN (Reason: pain ) Discontinued meloxicam 15 mg tablet 15 mg PO DAILY Referrals / Follow Up: Olivia Trevino MD [Med Staff - Traditional Chinese Herbalist] - Within 2 Weeks Estuardo Bryant MD [Med Staff - Active Staff] - Within 1 Week Dick Capps DO [Med Staff - Active Staff] - Within 2 Weeks Micah Motley MD [Primary Care Provider] - Disposition Disposition (needs filled in before D/C Order can be placed): Home, Self Care Charges/Coding Visit Charges Inpatient E&M: 54913 Disch Hosp >30min
--- NOTE | 2022-11-26 15:34 | CASEMGMT ---
Patient is discharging on [facility]. KADEN CM in to provide $10 copay card. Patient and had no further questions or concerns at this time.
== END 2022-11-26 17:34 | disposition home or self-care (01) | DRG 812 ==
LOC: ED 08:52 → PCU 12:54
PROVIDERS: Internal Medicine Gastroenterology; Admitting Provider Student in an Organized Health Care Education/Training Program; Emergency Provider Emergency Medicine; PCP Internal Medicine; Visit Provider Student in an Organized Health Care Education/Training Program
PROC: 0DJ08ZZ Inspection of Upper Intestinal Tract, Via Natural or Artificial Opening Endoscopic (ICD-10-PCS; CPT 43235; principal; 2022-11-25 11:25)
DX: D50.9 Iron deficiency anemia, unspecified (principal); I82.812 Embolism and thrombosis of superficial veins of left lower extremity; R13.14 Dysphagia, pharyngoesophageal phase; S02.2XXA Fracture of nasal bones, initial encounter for closed fracture; S83.207A Unspecified tear of unspecified meniscus, current injury, left knee, initial encounter; R19.5 Other fecal abnormalities; E86.0 Dehydration; K44.9 Diaphragmatic hernia without obstruction or gangrene; W18.30XA Fall on same level, unspecified, initial encounter; R19.7 Diarrhea, unspecified; R55 Syncope and collapse; Z79.899 Other long term (current) drug therapy
CPT/HCPCS: 36415; 37191; 70450; 70460; 70486; 70553; 71275; 72125; 73564; 73706; 76937; 80048; 82274; 85025; 85379; 85610; 85730; 90715; 93005; 93971; 97162; 97166; 99152; 99285; 99406; J7030; J7040; J7120; Q9967; A4216; C1769; C1880; J2405; J3490

== ENCOUNTER → 2022-11-30 | Outpatient (CLI) | payer BC, SELFPAY ==
[2022-11-30 13:22] LABS: Hemoglobin 10.6 g/dL (13.0-16.5)
== END | disposition home or self-care (01) ==
LOC: LAB 13:10
PROVIDERS: PCP Internal Medicine; Referring Provider Physician Assistant; Visit Provider Physician Assistant
DX: D50.9 Iron deficiency anemia, unspecified (principal)
CPT/HCPCS: 36415; 85018

== ENCOUNTER → 2022-12-07 | Outpatient (CLI) | payer BC, SELFPAY | END | disposition home or self-care (01) | LOC: LAB 10:47 | PROVIDERS: PCP Internal Medicine; Referring Provider Physician Assistant; Visit Provider Physician Assistant | DX: D50.9 Iron deficiency anemia, unspecified (principal); S80.02XA Contusion of left knee, initial encounter | CPT/HCPCS: 36415; 85018 ==

== ENCOUNTER → 2022-12-17 | Outpatient (CLI) | payer BC, SELFPAY ==
[2022-12-17 12:14] LABS: Hemoglobin 11.5 g/dL (13.0-16.5)
== END | disposition home or self-care (01) ==
LOC: LAB 11:50
PROVIDERS: PCP Internal Medicine; Referring Provider Physician Assistant; Visit Provider Physician Assistant
DX: D64.9 Anemia, unspecified (principal)
CPT/HCPCS: 36415; 85018

== ENCOUNTER 2022-12-28 09:24 | Day surgery (SDC) | payer BC, SELFPAY ==
[2022-12-28 09:50] VITALS: BP 126/104; PULSE 86; RESP 16; TEMP 36.1; O2SAT 99
[2022-12-28] MEDS: Lactated Ringers 1,000 ML 15 ML IV (10:06)
--- NOTE | 2022-12-28 10:46 | PCM.HP.BLA ---
History and Physical Date of Admission: 12/28/22 46 M who presents to the office today for PCP OV 3.6.23 for f/u. Anxiety and depression treated with paroxetine improved, paroxetine stopped; life stressors caused reemergence of symptoms and was noted to be actively anxious at appointment. Notes dysphagia with solid foods. *BGI established 5.26.23 dysphagia, particularly with dry foods, has been present on a daily basis for the last several months and has been getting worse during this time. No acute episodes. Reports minor reflux with triggers.; chews tobacco and has been avoiding dietary triggers. Denies FH with similar issues. ROS Const Constitutional: No anorexia, fatigue, fever(s), weight change or sleep problems Eyes Eyes: No change in vision ENT ENT: No abnormal hearing, difficulty swallowing, mouth lesions, tongue swelling or throat swelling Resp Respiratory: No cough or shortness of breath Cardio Cardiology: No chest pain at rest, chest pain with exertion, shortness of breath or dyspnea on exertion Gastro GI: No difficulty swallowing Genitourinary Male: No difficulty urinating or burning urination Musc Musculoskeletal: No joint pain, joint swelling, muscle weakness or decreased muscle mass Skin Skin: No hair loss in leg, yellowing of the eye, itchy eyes, rash, skin ulcer or skin swelling Neuro Neurology: No abnormal hearing, abnormal movements, confusion, unsteady gait/balance or memory loss Psych Psychiatric: No anxiety, No confusion and No memory loss Endo Endocrine: No fatigue or weight change Aller/Imm Allergy/Immunologic: No itchy eyes, throat swelling or tongue swelling Henry/Lymp Hematologic/Lymphatic: No easy bleeding, easy bruising or enlarged lymph nodes Exam Const General: cooperative and comfortable Nutritional Appearance: average body habitus and well nourished [facility] Head: normal to inspection Ears: hearing grossly normal bilaterally Nose: external nose normal Face and sinus: normal facial exam Mouth: oral mucosae normal Throat: posterior oropharynx normal Eyes General: appearance normal, both eyes and all related structures Neck Neck: normal visual inspection Chest Chest palpation & inspection: normal inspection of the chest and normal palpation of entire chest wall Resp Effort & Inspection: normal respiratory effort Auscultation: Bilateral: Clear to Auscultation Cardio Palpation: normal PMI Rate: regular rate Rhythm: regular rhythm GI Inspection: normal to inspection Auscultation: normal bowel sounds Percussion: normal to percussion Palpation: no hepatosplenomegaly Skin General: no rashes or lesions noted Neuro General: patient alert Extrem General: normal to inspection Psych Affect: normal affect Assessment and Plan Assessment and Plan (1) Encounter for screening for malignant neoplasm of colon: Status: Chronic Plan: Patient will undergo screening colonoscopy. He was explained alternatives, risk, benefits including outstanding bleeding, infection, sepsis, perforation, need for emergent surgery . He will have an ASA of 2. (2) Esophageal dysphagia: Status: Chronic Plan: The differential diagnosis for his esophageal dysphagia does include eosinophilic esophagitis, gastroesophageal reflux disease and associated Schatzki's ring, erosive esophagitis, sliding hiatal hernia, esophageal dysmotility disorder. We will undergo food allergy testing along with testing for celiac disease as it could be associated with GERD and erosive esophagitis along with eosinophilic esophagitis. He will be placed on Protonix 40 mg p.o. twice daily as 50% of people with eosinophilic esophagitis to have underlying GERD and if he has erosive esophagitis this was subsequently help his esophageal dysphagia. Orders: Orders Allergen, Food Profile Today R13.19 - Other dysphagia, Z12.11 - Encounter for screening for malignant neoplasm of colon Allergen, Rast Food Profile Today R13.19 - Other dysphagia, Z12.11 - Encounter for screening for malignant neoplasm of colon ANCA Today R13.19 - Other dysphagia, Z12.11 - Encounter for screening for malignant neoplasm of colon Celiac Disease Profile Today R13.19 - Other dysphagia, Z12.11 - Encounter for screening for malignant neoplasm of colon Immunoglobulin A Today R13.19 - Other dysphagia, Z12.11 - Encounter for screening for malignant neoplasm of colon Immunoglobulin E Today R13.19 - Other dysphagia, Z12.11 - Encounter for screening for malignant neoplasm of colon Immunoglobulin G Today R13.19 - Other dysphagia, Z12.11 - Encounter for screening for malignant neoplasm of colon CBC W/Diff, Automated Today R13.19 - Other dysphagia, Z12.11 - Encounter for screening for malignant neoplasm of colon Immunoglobulin M Today R13.19 - Other dysphagia, Z12.11 - Encounter for screening for malignant neoplasm of colon CRP Today R13.19 - Other dysphagia, Z12.11 - Encounter for screening for malignant neoplasm of colon Erythrocyte Sed Rate Today R13.19 - Other dysphagia, Z12.11 - Encounter for screening for malignant neoplasm of colon GEOVANY Comprehensive Panel Today R13.19 - Other dysphagia, Z12.11 - Encounter for screening for malignant neoplasm of colon Medications: New pantoprazole 40 mg PO BID 3 months 180 tabs 3RF I have examined the patient and the H&P has been reviewed. There are no clinical changes since date of exam.
[2022-12-28 11:04] VITALS: BP 126/99; BP 95/64; PULSE 73; RESP 16; TEMP 36.6; O2SAT 95
[2022-12-28 11:10] VITALS: BP 105/81; BP 126/99; PULSE 71; RESP 16; O2SAT 95
--- NOTE | 2022-12-28 11:10 | OP.COLON_ITS ---
Patient Name: Jose Ortiz Procedure Date: 12/28/2022 10:45 AM Date of : 1975 Age: 47 Procedure: Colonoscopy Indications: Screening for colorectal malignant neoplasm Providers: Dick Capps DO Referring MD: Dick Capps DO Medicines: Monitored Anesthesia Care Patient Profile: This is a 47 year old male. Refer to note in patient chart for documentation of history and physical. Last Colonoscopy: none. The patient's first colonoscopy is today. Complications: No immediate complications. Procedure: Pre-Anesthesia Assessment: - Prior to the procedure, a History and Physical was performed, and patient medications and allergies were reviewed. The risks and benefits of the procedure and the sedation options and risks were discussed with the patient. All questions were answered and informed consent was obtained. Patient identification and proposed procedure were verified by the physician. Mental Status Examination: normal. Prophylactic Antibiotics: The patient does not require prophylactic antibiotics. Prior Anticoagulants: The patient has taken no anticoagulant or antiplatelet agents. After reviewing the risks and benefits, the patient was deemed in satisfactory condition to undergo the procedure. The anesthesia plan was to use monitored anesthesia care (MAC). Immediately prior to administration of medications, the patient was re-assessed for adequacy to receive sedatives. The heart rate, respiratory rate, oxygen saturations, blood pressure, adequacy of pulmonary ventilation, and response to care were monitored throughout the procedure. The physical status of the patient was re-assessed after the procedure. After I obtained informed consent, the scope was passed under direct vision. Throughout the procedure, the patient's blood pressure, pulse, and oxygen saturations were monitored continuously. The colonoscope was introduced through the anus and advanced to the cecum, identified by appendiceal orifice and ileocecal valve. The colonoscopy was performed without difficulty. The patient tolerated the procedure well. The quality of the bowel preparation was good. Scope In: 10:52:11 AM Scope Withdrawal Time 0 hours 6 minutes 18 seconds Scope Out: 11:00:20 AM Total Procedure Duration Time 0 hours 8 minutes 9 seconds Findings: The perianal and digital rectal examinations were normal. Many small-mouthed diverticula were found in the recto-sigmoid colon and sigmoid colon. The exam was otherwise without abnormality on direct and retroflexion views. Impression: - Diverticulosis in the recto-sigmoid colon and in the sigmoid colon. - The examination was otherwise normal on direct and retroflexion views. - No specimens collected. Recommendation: - Discharge patient to home. - Resume previous diet. - Continue present medications. - Repeat colonoscopy in 10 years for screening purposes. Procedure Code(s): --- Professional --- G0121, Colorectal cancer screening; colonoscopy on individual not meeting criteria for high risk CPT copyright 2021 [employer]. All rights reserved. The codes documented in this report are preliminary and upon correctional officer captain review may be revised to meet current compliance requirements. Dick Capps DO 12/28/2022 11:10:46 AM This report has been signed electronically. Number of Addenda: 0 Note Initiated On: 12/28/2022 10:45 AM
--- NOTE | 2022-12-28 11:11 | OP.CCLET_ITS ---
12/28/2022 Micah Motley [address] [place] [address] Re : Colonoscopy procedure for Jose Ortiz Dear Dr. Motley This procedure was performed on Wednesday, December 28, 2022. My impressions and recommendations are as follows: Impressions : - Diverticulosis in the recto-sigmoid colon and in the sigmoid colon. - The examination was otherwise normal on direct and retroflexion views. - No specimens collected. Recommendations : - Discharge patient to home. - Resume previous diet. - Continue present medications. - Repeat colonoscopy in 10 years for screening purposes. My findings are described in the full procedure note, which is enclosed. If I can be of further assistance, please feel free to contact me at . Sincerely, Dick Capps, 12/28/2022 11:10:46 AM This report has been signed electronically.
[2022-12-28 11:15] VITALS: BP 111/71; BP 126/99; PULSE 71; RESP 16; O2SAT 96
[2022-12-28 11:22] VITALS: BP 110/79; BP 126/99; PULSE 71; RESP 16; TEMP 36.3; O2SAT 99
[2022-12-28 11:52] VITALS: BP 126/99
== END 2022-12-28 11:54 | disposition home or self-care (01) ==
LOC: EN 09:25 → AC 09:27
PROVIDERS: PCP Internal Medicine; Referring Provider Internal Medicine; Visit Provider Internal Medicine Gastroenterology
PROC: 0DJD8ZZ Inspection of Lower Intestinal Tract, Via Natural or Artificial Opening Endoscopic (ICD-10-PCS; CPT 45378; principal; 2022-12-28 10:25)
DX: Z12.11 Encounter for screening for malignant neoplasm of colon (principal); K57.30 Diverticulosis of large intestine without perforation or abscess without bleeding; K21.9 Gastro-esophageal reflux disease without esophagitis; Z79.899 Other long term (current) drug therapy; Z79.01 Long term (current) use of anticoagulants; Z86.718 Personal history of other venous thrombosis and embolism; Z87.891 Personal history of nicotine dependence
CPT/HCPCS: G0121; J7120; J2405

== ENCOUNTER → 2023-01-07 | Outpatient (CLI) | payer BC, SELFPAY ==
[2023-01-07 10:51] LABS: Hemoglobin 13.4 g/dL (13.0-16.5)
== END | disposition home or self-care (01) ==
LOC: LAB 10:27
PROVIDERS: PCP Internal Medicine; Referring Provider Physician Assistant; Visit Provider Physician Assistant
DX: D64.9 Anemia, unspecified (principal)
CPT/HCPCS: 36415; 85018

== ENCOUNTER 2023-02-02 05:51 | Day surgery (SDC) | payer BC, SELFPAY ==
[2023-02-01 07:59] VITALS: BMI 30.4
[2023-02-02] VITALS (8 sets, daily range): BP systolic 124–137; BP diastolic 78–94; PULSE 55–82; RESP 16–17; TEMP 35.9–36.7; O2SAT 95–100; BMI 31.4
[2023-02-02] MEDS: Lactated Ringers 1,000 ML 15 ML IV (06:31)
--- NOTE | 2023-02-02 08:11 | PCM.HP.STD ---
HPI - General HPI Narrative TATI GUAMAN, is a 47 M who presents with prior IVC filter placed due to provoked DVT and anemia contraindicating anticoagulation. He is currently tolerating xarelto and presents for retrieval. [facility] Medical History Anemia Anxiety Back pain Bilateral knee pain Chewing tobacco nicotine dependence in remission Closed fracture nasal bone Contusion of knee, left Depression DVT (deep venous thrombosis) Gastric reflux History of pain when walking Normal stress echocardiogram Superficial thrombosis of left lower extremity Syncope Tetanus toxoid vaccination administered at current visit Home Medications acetaminophen 325 mg tablet (Tylenol) 650 mg PO Q6H 01/19/23 [History Last Taken Unknown] pantoprazole 40 mg tablet,delayed release 80 mg PO 1400 01/19/23 [History Last Taken Unknown] rivaroxaban 20 mg tablet (Xarelto) 20 mg PO QHS 01/19/23 [History Last Taken 01/30/23] Allergy/AdvReac Type Severity Reaction Status Date / Time No Known Allergies Allergy Verified 02/02/23 06:20 Surgical History History of esophagogastroduodenoscopy (EGD) Hx of left knee surgery Hx of surgical procedure S/P LASIK (laser assisted in situ keratomileusis) Social History Smoking Status: Former smoker ROS Constitutional Constitutional: Denies chills, fever(s), frequent falls, lethargy or weakness Eyes Eyes: Denies blind spots, change in vision or loss of vision ENT HEENT: Denies bleeding gums, hoarseness or sore throat Cardiovascular Cardiovascular: Denies abdominal pain, bluish discoloration of hand/feet, chest pain with activity, claudication, cold extremities, cyanosis, dyspnea on exertion, erythema on extremities, irregular heart rhythm, leg edema, leg ulcers, numbness in extremities or weakness in extremities Respiratory/Chest Respiratory/Chest: Denies cough, excessive phlegm production, shortness of breath at rest, shortness of breath with exertion or wheezing Gastrointestinal Gastrointestinal: Denies anorexia, change in stool character, constipation, diarrhea, melena or rectal bleeding Genitourinary Genitourinary: Denies dysuria or hematuria Musculoskeletal Musculoskeletal: Denies abnormal gait Integumentary Integumentary: Reports other Details: ; Denies erythema, non-healing lesions or wounds Neurologic Neurologic: Denies abnormal speech, focal weakness, headache(s), loss of vision, numbness, paresthesias or sensory deficit Hematologic/Lymphatic Hematologic/Lymphatic: Denies easy bleeding, easy bruising or lymphadenopathy Vital Signs Vital Signs Vital Signs: 02/02/23 06:22 02/02/23 06:22 Temperature 97.5 F L Temperature Source Temporal Pulse Rate 67 Respiratory Rate 16 Respiratory Pattern Normal Blood Pressure 124/89 H Blood Pressure Mean 100 Blood Pressure Source Monitor Blood Pressure Position Semi-Fowlers Blood Pressure Location Left Arm Pulse Ox 95 Oxygen Delivery Method Room Air Weight Weight: 224 lb 13.944 oz Body Mass Index (BMI) 31.4 Physical Exam Const alert, oriented x3, no apparent distress and healthy appearing General Appearance: cooperative; Negative for combative or lethargic Orientation / Consciousness: awake Exam Limitations: no limitations HEENT Head and Scalp: normocephalic and atraumatic Eyes EOMs intact bilaterally General Eye: normal appearance of both eyes Neck full ROM, no lymphadenopathy, thyroid normal and No no carotid bruits General: trachea midline; Negative for lymphadenopathy or tenderness Thyroid: thyroid normal Lymph Lymphatic: Negative for no lymphadenopathy noted Resp normal respiratory effort, no use of accessory muscles and clear to auscultation bilaterally Effort and Inspection: Negative for labored, stridor or audible wheezes Cardio regular rate, regular rhythm and no murmurs Peripheral Pulses: brachial pulses present, radial pulses present, femoral pulses present, popliteal pulses present, posterior tibial pulses present and dorsalis pedis pulses present GI non-tender and non-distended; Negative for hepatosplenomegaly Back/Spine Cervical Spine: cervical ROM normal Extremity full ROM, normal capillary refill and no clubbing, cyanosis or edema Skin no rashes or lesions noted and no wounds Neuro oriented x3, CN's II-XII intact bilaterally, no focal motor deficits and no sensory deficits noted Psych thought process normal, cooperative, affect normal, speech normal and activity/motor behavior normal Assessment & Plan Assessment/Plan (1) S/P insertion of IVC (inferior vena caval) filter: PLAN: -retrieve filter
--- NOTE | 2023-02-02 08:54 | DCINST_ITS ---
Discharge Instructions Diet Discharge Diet: No restrictions Activity Discharge Activity: May Drive (tomorrow), May Shower (tomorrow) and May Take a Tub Bath (2 weeks) Lifting Restrictions: do not lift > 20 lbs for 2 weeks Dressing / Incision Call your doctor if your incision/area has: Sudden Increased Bleeding, Increased Pain/ Swelling, Increased Redness and Foul Smelling Discharge Call your doctor if you observe: Fever of 101 or Higher Remove Dressing in: 1 day Cleanse incision/area with: Soap & Water Follow Up Care Test Results: Test results from this visit will be discussed in further detail at your follow- up appointment, if applicable. Discharge Plan Admission Attending Provider: Estuardo Bryant Primary Care Provider: Micah Motley Discharge Orders/Prescriptions Prescriptions: Continued acetaminophen [Tylenol] 325 mg tablet 650 mg PO Q6H pantoprazole 40 mg tablet,delayed release (DR/EC) 80 mg PO 1400 Held Xarelto 20 mg tablet 20 mg PO QHS Hold Instructions: Resume on 02/03/23. Rx Instructions: must administer with evening meal Referrals / Follow Up: Micah Motley MD [Primary Care Provider] - Disposition Disposition (needs filled in before D/C Order can be placed): Home, Self Care
--- NOTE | 2023-02-02 08:57 | PCM.OPRPT ---
Report of Operation Date of Procedure: 02/02/23 Pre-Operative Diagnosis: presence of IVC filter Post-Operative Diagnosis: same Surgery/Procedure Performed:: retrieval IVC filter Description of Surgical Findings:: filter patent with no thrombus no extravasation/dissection post removal Surgeon: Estuardo Bryant Estimated Blood Loss (mL): 2 Description of Procedure: HPI: Patient is a 47-year-old male who previously had an IVC filter placed for acute deep venous thrombosis and contraindication to anticoagulation. He has since been placed on anticoagulation with no further signs of bleeding and presents now for filter retrieval. Description of procedure: Upon obtaining form consent and verification correct patient procedure site patient to the [facility] where he was placed under general anesthesia. He was then positioned prepped and draped in usual sterile fashion a timeout was performed. The left internal jugular vein was accessed with a micropuncture needle wire under ultrasound guidance which was then exchanged out for micropuncture sheath. Through this Bentson wire was advanced into the superior vena cava and efforts made to traverse the atrium into the inferior vena cava. The micropuncture sheath was then exchanged out for a KMP catheter which were ultimately was successfully navigated to the IVC. We then advanced the wire and catheter to the vena cava inferior to the filter and a subtraction venacavogram was performed which revealed a patent IVC with no evidence of thrombus. The wire was then readvanced and the catheter exchanged for the [employer] filter retrieval system which was advanced in the position just cephalad to the filter. The snare was then used to grasp the retrieval hook and the sheath advanced over the filter collapsing it into the inner retrieval guide. The filter and snare along with the into the guide were withdrawn and a completion venacavogram performed which revealed no extravasation or dissection. The outer sheath was then withdrawn and manual pressure held for 10 minutes after satisfactory stasis was noted. The patient was awakened anesthesia taken to recovery room with anticipated discharged home.
[2023-02-02] MEDS: Acetaminophen 325 MG Tablet 650 MG PO (10:49)
--- NOTE | 2023-02-02 12:31 | SUR.PHASEII ---
1215; site check completed; soft left neck site. shadowing on dressing is marked and bleeding has not grown. patient tolerated walking to the bathroom and void completed.
== END 2023-02-02 12:34 | disposition home or self-care (01) ==
LOC: SDC 05:51 → AC 05:53
PROVIDERS: PCP Internal Medicine; Referring Provider Surgery Trauma Surgery; Visit Provider Surgery Trauma Surgery
DX: Z95.828 Presence of other vascular implants and grafts (principal); D64.9 Anemia, unspecified; K21.9 Gastro-esophageal reflux disease without esophagitis; Z79.899 Other long term (current) drug therapy; Z79.01 Long term (current) use of anticoagulants; Z86.718 Personal history of other venous thrombosis and embolism; Z87.891 Personal history of nicotine dependence
CPT/HCPCS: 01930; 37193; 76937; C1769; C1773; J7120; Q9967; J2405

== ENCOUNTER 2024-09-14 22:20 | Emergency (ER) | payer BC, SELFPAY ==
[2024-09-14 22:21] VITALS: BP 135/85; PULSE 101; RESP 16; TEMP 37.8; O2SAT 97; BMI 31.4
--- NOTE | 2024-09-14 23:19 | EDS_ITS ---
HPI History of Present Illness Chief Complaint: Fever Informant: patient Onset/Context/Timing Onset: Days (3) Context: Gradual Onset Timing: Continuous Quality: Aching Location: Generalized Worsened by: Nothing Relieved by: Nothing Narrative Narrative: Patient presents with cough that has been getting worse over the past 3 days. Patient started having a fever today. Patient had a fever of 103 at home. Patient admits to having chills. Patient also admits to a sore throat. Patient denies any sputum production. Patient admits to diffuse bodyaches and back pain. Patient states nothing makes his symptoms better and nothing makes it worse. Patient denies any shortness of breath. Patient denies any chest pain. [facility] Medical History DVT (deep venous thrombosis) Back pain Syncope Gastric reflux Chewing tobacco nicotine dependence in remission History of pain when walking Normal stress echocardiogram Contusion of knee, left Tetanus toxoid vaccination administered at current visit Superficial thrombosis of left lower extremity Anemia Closed fracture nasal bone Bilateral knee pain Depression Anxiety Home Medications ?Medication ?Instructions ?Recorded ?Last Taken ?Type acetaminophen 325 mg tablet 650 mg PO Q6H 01/19/23 Unk nown History (Tylenol) pantoprazole 40 mg tablet,delayed 40 mg PO BID #180 TA BLETS 09/29/23 Unknown Rx release venlafaxine 37.5 mg 37.5 mg PO DAILY 09/14/24 Un known History capsule,extended release 24 hr (Effexor XR) Allergy/AdvReac Type Severity Reaction Status Date / Time No Known Allergies Allergy Verified 09/14/24 22:21 Surgical History Hx of surgical procedure Hx of left knee surgery History of esophagogastroduodenoscopy (EGD) S/P LASIK (laser assisted in situ keratomileusis) Social History (Updated 09/14/24 @ 23:[address] Estuardo Mcallister DO) Smoking Status: Former smoker Smokeless tobacco user: chewing tobacco ROS ROS ED Constitutional Constitutional ED: Reports chills and fever(s) Eyes Eyes: Denies blurry vision or change in vision ENT ENT ED: Reports sore throat; Denies rhinorrhea Cardiovascular Cardiovascular: Denies chest pain or palpitations Respiratory/Chest Respiratory/Chest: Reports cough; Denies dyspnea Gastrointestinal Gastrointestinal: Denies nausea or vomiting Genitourinary Genitourinary ED: Denies dysuria or hematuria Musculoskeletal Musculoskeletal: Reports arthralgias, back pain and myalgias; Denies neck pain Integumentary Denies abscess or rash Neurologic Neurologic: Denies headache(s) or weakness Allergic/Immunologic Allergic/Immunologic ED: Denies mouth swelling or urticaria EXAM Physical Exam Const Vital Signs: 09/14/24 22:21 09/14/24 23:17 09/14/24 23:20 Temperature 100.1 F H Temperature Source Oral Pulse Rate 101 H 87 Respiratory Rate 16 21 H Respiratory Effort Short of Breath Respiratory Pattern Tachypnea Blood Pressure 135/85 H 119/93 H Blood Pressure Mean 101 101 Pulse Ox 97 93 Oxygen Delivery Method Room Air Room Air 09/15/24 00:22 Temperature 99.2 F H Temperature Source Axillary Pulse Rate 84 Respiratory Rate 16 Respiratory Effort Respiratory Pattern Blood Pressure 143/85 H Blood Pressure Mean 104 Pulse Ox 97 Oxygen Delivery Method Room Air Positive well nourished and well developed General Appearance ED: well developed and NAD HEENT Reports moist mucous membranes Neck supple and no JVD Resp normal respiratory effort Auscultation: diminished lung sounds diffuse Cardio regular rate and regular rhythm GI non-tender and non-distended Palpation: soft Extremity normal to inspection General Extremety ED: Negative for edema or tenderness General Extremity: Negative for edema Neuro oriented x3, CN's II-XII intact bilaterally and no sensory deficits noted Sensorium / Orientation: alert Motor Exam: strength 5/5 throughout Psych mental status grossly normal MDM MDM MDM Narrative Medical decision making narrative: Differential diagnosis includes pneumonia, bronchitis, viral upper respiratory infection, urinary tract infection, dehydration, and sepsis. CBC will be obtained to assess for leukocytosis and anemia. Basic metabolic profile will be obtained to assess for electrolyte abnormality and renal function. Serum lactat e will be obtained to assess for sepsis. PT was INR and PTT will be obtained to assess for coagulopathy. Blood cultures will be obtained to assess for sepsis. COVID-19, influenza, and RSV PCR will be obtained to assess for viral illness. Urinalysis will be obtained to assess for urinary tract infection. Chest x-ray will be obtained to assess for pneumonia and bronchitis. History & Record Review Additional record(s) reviewed:: Prior outpatient record, Prior ED visit and Prior labs Lab Data Attestation: I reviewed the patient's lab results. Lab results narrative: CBC was reviewed and was within normal limits. Basic metabolic profile was revi ewed and was within normal limits. Serum lactate was reviewed and was normal at 1.8. PT with INR and PTT were reviewed and were within normal limits. Urinalysis was reviewed. There is no evidence of urinary tract infection or hematuria. COVID-19 PCR was reviewed and was positive. Influenza PCR was reviewed and was negative for influenza A and influenza B. RSV PCR was reviewed and was negative. Labs: Laboratory Results - last 24 hr 09/14/24 09/14/24 23:14 23:30 WBC 8.0 RBC 4.90 Hgb 14.3 Hct 41.8 MCV 85.3 MCH 29.2 MCHC 34.2 RDW Std Deviation 40.1 RDW Coeff of [place] 13.0 Plt Count 176 MPV 9.2 Immature Gran % (Auto) 0.600 Neut % (Auto) 81.5 H Lymph % (Auto) 10.3 L [place] % (Auto) 6.9 Eos % (Auto) 0.3 Baso % (Auto) 0.4 Absolute Neuts (auto) 6.5 Absolute Lymphs (auto) 0.82 L Nucleated RBC % 0 PT 13.8 INR 1.0 APTT 25.2 Sodium 136 Potassium 4.0 Chloride 103 Carbon Dioxide 19.6 L Anion Gap 14 BUN 13 Creatinine 1.12 Estim Creat Clear Calc 100.25 Est GFR (MDRD) Non-Af 82 BUN/Creatinine Ratio 11.9 Glucose 123 H Lactic Acid 1.8 Calcium 8.9 Urine Color Yellow Urine Clarity Clear Urine pH 5.0 Ur Specific [place] 1.025 Urine Protein 30 H Urine Glucose (UA) Normal Urine Ketones Negative Urine Occult Blood 50 H Urine Nitrite Negative Urine Bilirubin Negative Urine Urobilinogen Normal Ur Leukocyte Esterase Negative Urine RBC 0-5 SEEN Urine WBC 0 SEEN Ur Squamous Epith Cells 0 SEEN Urine Bacteria 0 SEEN Urine Mucus 2+ Radiography Chest X-Ray - ED: 2 View, Read by ED Physician, Read by Radiologist and No Acute Disease Diagnostic Testing: Clinical Impression(s) from Imaging Studies Chest X-Ray 09/14/24 23:45 IMPRESSION: No evidence of acute disease. Reading Location: [id number] and lateral chest x-ray was obtained. There are 2 views. On my independent interpretation, lung herrmann are clear. There is normal cardiac silhouette. Bony thorax is normal. There is no acute process noted. Radiologist also interpreted the x-ray and agrees. Treatment and Re-Evaluation :: Patient was given IV fluids. Patient was given Tylenol. Patient was feeling better on reevaluation. Patient was advised of his findings. Patient was instructed to drink plenty of fluids. Patient was instructed to take Tylenol or ibuprofen as needed for pain or fevers. Patient was instructed to follow-up with his primary care physician in 5 to 7 days. Patient was instructed to return if worse in any way. Patient understood and was agreeable with the plan. All questions were answered. Discharge Plan Triage Chief Complaint: Fever ED Provider: Estuardo Mcallister Dx/Rx/DC Orders Clinical Impression: COVID-19, Acute febrile illness Instructions: Coronavirus Disease 2019 (COVID-19): Overview Prescriptions: No Action acetaminophen [Tylenol] 325 mg tablet 650 mg PO Q6H venlafaxine [Effexor XR] 37.5 mg capsule,extended release 24hr 37.5 mg PO DAILY pantoprazole 40 mg tablet,delayed release (DR/EC) 40 mg PO BID Qty: 180 5RF Stand Alone Forms: ED Work / School Excuse Primary Care Provider: Micah Motley Referrals: Micah Motley MD [Primary Care Provider] - 5-7 Days Print Language: Luxembourgish Disposition Disposition: Home, Self Care
[2024-09-14 23:20] VITALS: BP 119/93; PULSE 87; RESP 21; O2SAT 93
[2024-09-14] MEDS: 0.9% Normal Saline (1000mL) 1,000 ML 1000 ML IV (23:29)
[2024-09-14] MEDS: Acetaminophen 500 MG Tablet 1000 MG PO (23:30)
[2024-09-14 23:32] LABS: Absolute Lymphocyte Count 0.82 X10^3/uL (0.83-4.51); Absolute Neutrophil Count 6.5 X10^3/uL (2.0-7.7); Basophil# 0.03 X10^3/uL; Basophil% 0.4 % (0-1); Eosinophil# 0.02 X10^3/uL; Eosinophils% 0.3 % (0-5); Hematocrit 41.8 % (40-54); Hemoglobin 14.3 g/dL (13.0-16.5); Lymphocyte # 0.82 X10^3/ul (0.83-4.51); Lymphocyte % 10.3 % (19-41); Mean Corp Hgb Conc 34.2 g/dL (32-36); Mean Corpuscular Hgb 29.2 pg (27.0-32.0); Mean Corpuscular Volume 85.3 fL (80-94); Mean Platelet Vol. 9.2 fl (6.2-12.0); Monocyte# 0.55 X10^3/uL; Monocyte% 6.9 % (0-10); NRBC Flagged by Analyzer 0 % (0-5); Neutrophil % 81.5 % (47-70); Platelet Count 176 K/mm3 (150-450); RBC Distribution Width SD 40.1 fl (35.1-43.9)
[2024-09-14 23:38] LABS: Bacteria 0 SEEN /hpf (None Seen); Squamous Epithelial Cells - UA 0 SEEN /hpf (0-5); White Blood Cells 0 SEEN /hpf (0-5)
[2024-09-14 23:39] LABS: Color, Urine Yellow (Yellow); Glucose, Dipstick Normal (Normal); Ketone-Dipstick Negative (Negative); Leukocyte Esterase-Dipstick Negative /ul (Negative); Nitrite-Dipstick Negative (Negative); Occult Blood-Urine 50 /ul (Negative); Protein-Dipstick 30 mg/dl (Negative); Specific Gravity, Urine 1.025 (1.002-1.030); Urine Bilirubin Dipstick Negative (Negative); Urine Clarity Clear (Clear); Urine Urobilinogen Normal (Normal)
[2024-09-14 23:45] LABS: Partial Thromboplast Time 25.2 Seconds (24.1-36.2); Prothrombin Time (Protime)PT. 13.8 SECONDS (11.7-14.9)
--- NOTE | 2024-09-14 23:45 | RAD_ITS ---
PROCEDURE: CHEST PA AND LATERAL 09/14/2024 REASON FOR EXAM: FEVER TECHNIQUE: Frontal and lateral views of the chest. FINDINGS: The lungs appear clear. Pulmonary vascularity appears within limits. No pleural effusion. The cardiac and mediastinal contours appear within limits. Visualized osseous structures appear within limits. RAD/Chest PA and Lateral IMPRESSION: No evidence of acute disease. Reading Location: [id number]
[2024-09-14 23:46] LABS: Mucous, Urine 2+ /hpf (<or=2+); Red Blood Cells-Urine 0-5 SEEN /hpf (0-5)
[2024-09-14 23:56] LABS: Anion Gap 14 (5-15); BUN 13 mg/dL (4-19); BUN/Creat Ratio 11.9 RATIO (10-20); Calcium,Total 8.9 mg/dL (7.6-11.0); Carbon Dioxide 19.6 mmol/L (21.0-32.0); Chloride 103 mmol/L (98-108); Creatinine, Serum 1.12 mg/dL (0.70-1.20); EST Glomerular Filtration Rate 82 (>60); Estimated Creatinine Clearance 100.25 ml/min (50-250); Glucose 123 mg/dL (70-99); Sodium Level 136 mmol/L (133-145)
[2024-09-15 00:03] LABS: Lactic Acid 1.8 mmol/L (0.0-2.0)
[2024-09-15 00:22] VITALS: BP 143/85; PULSE 84; RESP 16; TEMP 37.3; O2SAT 97
[2024-09-15 00:38] VITALS: BP 122/68; PULSE 78; RESP 12; TEMP 37.3; O2SAT 99
== END 2024-09-15 00:39 | disposition home or self-care (01) ==
PROVIDERS: Emergency Provider Emergency Medicine; PCP Internal Medicine; Visit Provider Emergency Medicine
DX: U07.1 COVID-19 (principal); Z87.891 Personal history of nicotine dependence; Z86.718 Personal history of other venous thrombosis and embolism
CPT/HCPCS: 71046; 80048; 81001; 83605; 85025; 85610; 85730; 87040; 87631; 96360; 99284; A4216